=== PATIENT | female | born 1955 | race Caucasian/White ===

== ENCOUNTER → 2018-01-11 11:19 | Outpatient (CLI) | payer OTHER, SELFPAY ==
--- NOTE | 2018-01-11 11:21 | HPBI_ITS ---
MAMMOGRAPHY - BILATERAL SCREENING REASON FOR EXAM: Female, 62 years old. Routine annual screening examination. PERTINENT HISTORY: Aunt with breast cancer. TECHNIQUE: Digital bilateral breast parker (3D mammographic acquisition) in the CC and MLO projections. 2-D mediolateral oblique (MLO) and craniocaudad (CC) views of both breasts were obtained. CAD: Full Field Digital Mammography with Computer Added Detection was performed. COMPARISON: Comparison is made with prior study dated July 02, 2016 and March 30, 2015. FINDINGS: Breast Composition: The breasts are heterogeneously dense, which may obscure small masses. There are no dominant masses or suspicious calcifications. Stable benign-appearing bilateral axillary lymph nodes. No other significant abnormalities are identified. There has been no significant change since the prior study. HPBI/SCREENING MAMM (CAD), BILAT IMPRESSION: Stable bilateral screening mammogram. Yearly follow-up mammogram recommended. (A) ASSESSMENT CATEGORY: BIRADS Category 2: Benign. A letter regarding these results will be sent to the patient by the facility within 30 days. Approximately 10% of breast cancers are not detected by mammography. A normal mammogram should not delay biopsy of a clinically suspicious abnormality. [id number] Electronically Signed: Martin Patel MD at 9:50 EDT Tel [phone], Service support ,
== END ==
PROVIDERS: Family Provider Family Medicine; PCP Family Medicine; Visit Provider Family Medicine
DX: Z12.31 Encounter for screening mammogram for malignant neoplasm of breast (principal)
CPT/HCPCS: 77063; 77067

== ENCOUNTER → 2019-02-19 07:03 | Outpatient (CLI) | payer OTHER, SELFPAY ==
--- NOTE | 2019-02-19 07:06 | BI_ITS ---
MAMMOGRAPHY - BILATERAL SCREENING REASON FOR EXAM: Female, 63 years old. Routine annual screening examination. PERTINENT HISTORY: Aunt with breast cancer. TECHNIQUE: Digital bilateral breast parker (3D mammographic acquisition) in the CC and MLO projections. 2-D mediolateral oblique (MLO) and craniocaudad (CC) views of both breasts were obtained. CAD: Full Field Digital Mammography with Computer Added Detection was performed. COMPARISON: Comparison is made with prior study dated January 11, 2018 and July 02, 2016. FINDINGS: Breast Composition: The breasts are heterogeneously dense, which may obscure small masses. There are no dominant masses or suspicious calcifications. Stable fat-containing bilateral axillary lymph nodes. No other significant abnormalities are identified. There has been no significant change since the prior study. BI/SCREENING MAMM (CAD), BILAT IMPRESSION: Stable bilateral screening mammogram. Yearly follow-up mammogram recommended. (A) ASSESSMENT CATEGORY: BIRADS Category 2: Benign. A letter regarding these results will be sent to the patient by the facility within 30 days. Approximately 10% of breast cancers are not detected by mammography. A normal mammogram should not delay biopsy of a clinically suspicious abnormality. [id number] Electronically Signed: Martin Patel, at 9:18 EDT , Service support ,
== END ==
PROVIDERS: Family Provider Family Medicine; PCP Family Medicine; Referring Provider Family Medicine; Visit Provider Family Medicine
DX: Z12.31 Encounter for screening mammogram for malignant neoplasm of breast (principal)
CPT/HCPCS: 77063; 77067

== ENCOUNTER → 2021-06-30 14:26 | Outpatient (CLI) | payer OTHER, SELFPAY ==
[2021-07-05 20:55] LABS: HPV Reflexed? NOT INDICATED
== END ==
PROVIDERS: PCP Family Medicine; Visit Provider Obstetrics & Gynecology
DX: Z12.4 Encounter for screening for malignant neoplasm of cervix (principal)
CPT/HCPCS: 88175; G0145

== ENCOUNTER → 2022-10-30 | Outpatient (CLI) | payer OTHER, SELFPAY ==
--- NOTE | 2022-10-30 15:04 | BI_ITS ---
MAMMOGRAPHY - BILATERAL SCREENING REASON FOR EXAM: Female, 67 years old. Routine annual screening examination. PERTINENT HISTORY: Aunt with breast cancer. TECHNIQUE: Digital bilateral breast alf (3D mammographic acquisition) in the CC and MLO projections. 2-D mediolateral oblique (MLO) and craniocaudad (CC) views of both breasts were obtained. CAD: Full Field Digital Mammography with Computer Added Detection was performed. COMPARISON: 04/10/2021, 02/19/2019. FINDINGS: Breast Composition: Portions of the bilateral breasts are heterogeneously dense which may obscure small masses. There is a developing grouping of indeterminate calcifications in the right upper central retroareolar breast some of which are new or more conspicuous than on previous study. Although these demonstrate likely benign morphology, given asymmetrical and new finding, further assessment with magnification views is recommended. No dominant masses. Benign-appearing bilateral axillary lymph nodes. No other significant findings. BI/SCRN MAMM (CAD)W/ALF BILAT IMPRESSION: Further imaging evaluation recommended, as described above. (E) Recall Side: Right Breast ASSESSMENT CATEGORY: BIRADS Category 0: Incomplete. Need additional imaging evaluation. A letter regarding these results will be sent to the patient by the facility within 30 days. Approximately 10% of breast cancers are not detected by mammography. A normal mammogram should not delay biopsy of a clinically suspicious abnormality. Electronically Signed: Montez Taylor, at 15:43 EST ,
--- NOTE | 2022-10-30 15:13 | BD_ITS ---
STUDY: DUAL ENERGY X-RAY ABSORPTIOMETRY / DXA REASON FOR EXAM: Female, 67 years old. Postmenopausal TECHNIQUE: Bone Mineral Density (BMD) measurements of lumbar spine and bilateral hips were obtained. COMPARISON: None. FINDINGS: Lumbar Spine (L1-L4): g/cm2 (0.912) / T-score (-1.2) / Z-score (0.7) Findings are suggestive of osteopenia with a low fracture risk. Left Femur Total: g/cm2 (0.868) / T-score (-0.6) / Z-score (0.7) Left Femoral Neck: g/cm2 (0.684) / T-score (-1.5) / Z-score (0.2) Right Femur Total: g/cm2 (0.895) / T-score (-0.4) / Z-score (1.0) Right Femoral Neck: g/cm2 (0.776) / T-score (-0.7) / Z-score (1.0) BD/Dexa Bone Density Study IMPRESSION: The patient is considered osteopenic as outlined below according to World Jonathan Organization (WHO) criteria with a low fracture risk. Reference Information: The T-score is the number of standard deviations above or below the standard which is normal for young adults at their peak bone mineral density. The World Health Organization (WHO) interprets the T-scores as follows: Above -1 Normal bone density Between -1 and -2.5 Osteopenia Equal to / or below -2.5 Osteoporosis As a practical clinical guideline, osteopenia may be graded as follows: Mild -1 through -1.5 Moderate -1.6 through -2.0 Severe -2.1 through -2.4 The Z-score is the number of standard deviations above or below age-matched controls. A Z-score of less than -1.5 would be considered abnormal. References: 1. NIH Osteoporosis and Related Bone Diseases www osteo.org 2. International Society for Clinical Densitometry www iscd.org 3. National Osteoporosis Foundation www nof.org Electronically Signed: Martin Patel MD at 12:10 EST ,
== END | disposition home or self-care (01) ==
PROVIDERS: PCP Internal Medicine; Visit Provider Obstetrics & Gynecology
DX: Z12.31 Encounter for screening mammogram for malignant neoplasm of breast (principal); Z78.0 Asymptomatic menopausal state
CPT/HCPCS: 77063; 77067; 77080

== ENCOUNTER → 2022-11-07 | Outpatient (CLI) | payer OTHER, SELFPAY ==
--- NOTE | 2022-11-07 14:03 | BI_ITS ---
MAMMOGRAPHY - UNILATERAL DIAGNOSTIC: RIGHT BREAST REASON FOR EXAM: Female, 67 years old. Abnormal screening mammogram. PERTINENT HISTORY: Aunt with breast cancer. TECHNIQUE: Magnification spot views of the right breast were obtained. CAD: Full Field Digital Mammography with Computer Added Detection was performed. COMPARISON: Comparison is made with prior examination dated 10/30/2022. FINDINGS: Breast Composition: The breasts are heterogeneously dense, which may obscure small masses. There are no dominant masses or suspicious calcifications. No other significant abnormalities are identified. BI/DIAG MAMM W/CAD, UNILAT IMPRESSION: Negative unilateral diagnostic mammogram. Yearly followup mammogram recommended. (A) ASSESSMENT CATEGORY: BIRADS Category 1: Negative. A letter regarding these results will be sent to the patient by the facility within 30 days. Approximately 10% of breast cancers are not detected by mammography. A normal mammogram should not delay biopsy of a clinically suspicious abnormality. Electronically Signed: Martin Patel MD at 15:12 EST ,
== END | disposition home or self-care (01) ==
LOC: OPBI 14:01
PROVIDERS: PCP Internal Medicine; Visit Provider Internal Medicine
DX: R92.2 Inconclusive mammogram (principal); R92.1 Mammographic calcification found on diagnostic imaging of breast
CPT/HCPCS: 77065

== ENCOUNTER → 2023-01-23 | Outpatient (CLI) | payer OTHER, SELFPAY ==
--- NOTE | 2023-01-23 18:08 | MRI_ITS ---
INDICATION: OSSEOUS MASS LEFT 2ND TOE -- 2MM SLICES EXAMINATION: MRI - LEFT MR Forefoot W/O Contrast TECHNIQUE: Multiplanar and multisequence MR images of the LEFT foot. IV Contrast Dosage and Agent: None. COMPARISON: None. FINDINGS: BONE: Extending off of the superior medial aspect of the second proximal phalanx is a sclerotic lesion likely a benign osteoma. This remains low signal on all pulse sequences. This measures 0.6 cm transverse by 0.2 cm craniocaudal by 0.65 cm AP. JOINTS: Mild osteoarthritis first MTP joint. MUSCLES: Normal bulk and signal. LIGAMENTS: The Lisfranc ligament is intact. TENDONS: The flexor and extensor tendons are intact. MISCELLANEOUS: Intact plantar fascia. OTHER SOFT TISSUES: Small first MTP joint effusion. Mild subcutaneous edema distal dorsal metatarsal region. 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 Other etiologies considered less likely. Mild osteoarthritis first MTP joint with small joint effusion. Mild subcutaneous edema dorsal metatarsal region. Electronically Signed: Garcia Barillas MD, TRICE at 8:24 EDT ,
== END | disposition home or self-care (01) ==
LOC: MRI 18:02
PROVIDERS: PCP Internal Medicine; Referring Provider Podiatrist; Visit Provider Podiatrist
DX: R22.9 Localized swelling, mass and lump, unspecified (principal)
CPT/HCPCS: 73718

== ENCOUNTER 2023-09-30 11:30 | Outpatient (RCR) | payer OTHER, SELFPAY | END 2023-10-03 23:59 | LOC: NS 11:30 | PROVIDERS: PCP Internal Medicine; Referring Provider Obstetrics & Gynecology; Visit Provider Obstetrics & Gynecology | DX: Z71.3 Dietary counseling and surveillance (principal); E11.9 Type 2 diabetes mellitus without complications | CPT/HCPCS: 97802; 97803 ==

== ENCOUNTER 2023-10-23 15:52 | Outpatient (RCR) | payer OTHER, SELFPAY | END 2023-11-03 23:59 | LOC: NS 15:52 | PROVIDERS: PCP Internal Medicine; Referring Provider Obstetrics & Gynecology; Visit Provider Obstetrics & Gynecology | DX: Z71.3 Dietary counseling and surveillance (principal); E11.9 Type 2 diabetes mellitus without complications | CPT/HCPCS: 97803 ==

== ENCOUNTER → 2023-11-11 | Outpatient (CLI) | payer OTHER, SELFPAY ==
--- NOTE | 2023-11-11 07:16 | BI_ITS ---
MAMMOGRAPHY - BILATERAL SCREENING REASON FOR EXAM: Female, 68 years old. Routine annual screening examination. PERTINENT HISTORY: Aunt with breast cancer. TECHNIQUE: Digital bilateral breast alf (3D mammographic acquisition) in the CC and MLO projections. 2-D mediolateral oblique (MLO) and craniocaudad (CC) views of both breasts were obtained. CAD: Full Field Digital Mammography with Computer Added Detection was performed. COMPARISON: Comparison is made with prior study dated October 30, 2022 and November 07, 2022. FINDINGS: Breast Composition: The breasts are heterogeneously dense, which may obscure small masses. There are no dominant masses or suspicious calcifications. No other significant abnormalities are identified. There has been no significant change since the prior study. BI/SCRN MAMM (CAD)W/ALF BILAT IMPRESSION: Stable bilateral screening mammogram. Yearly follow-up mammogram recommended. (A) ASSESSMENT CATEGORY: BIRADS Category 1: Negative. A letter regarding these results will be sent to the patient by the facility within 30 days. Approximately 10% of breast cancers are not detected by mammography. A normal mammogram should not delay biopsy of a clinically suspicious abnormality. [id number] Electronically Signed: Martin Patel MD at 15:41 EST ,
--- OUTSIDE RECORDS SUMMARY | 2023-11-11 07:19 | XMS RPT_ITS | CCD ---
Author Name Unknown Address [address] [place] [address] Organization [facility] Care Team Providers Care Snake Charmer Name Role Phone EDDIE MCDONALD, ALICIA Alba III Primary Care Physician Chante MCDONALD, Keyanna Unavailable Errol Luna MD Primary Care Provider ERROL LUNA MD Primary Care Physician Keyanna Sharif MD Unavailable Errol Luna MD Primary Care Provider AMOL DIAZ MD Primary Care Physician ERROL LUNA Primary Care Unavailable ERROL LUNA Primary Care Unavailable ERROL LUNA Primary Care Unavailable MIRANDA STILL Referring Unavailable ERROL LUNA Primary Care Unavailable ERROL LUNA Primary Care Unavailable Keyanna Sharif MD Unavailable Errol Luna MD Primary Care Provider AMOL DIAZ MD Primary Care Unavailable KEYANNA SHARIF MD Attending Milagro SHARIF MD, KEYANNA Attending ERROL Rick MD Primary Care Unavailable AMOL DIAZ MD Primary Care Unavailable KEYANNA SHARIF MD Attending Milagro awad Allergies Allergy Classification Reported Allergen(s) Allergy Type Date of Onset Reaction(s) Facility (13 sources) Erythromycin; Translations: [erythromycin] Drug Allergy 5 [facility] (12 sources) Meclizine; Translations: [meclizine] Drug Allergy 2 Mental Status Change [facility] (6 sources) Sulfonamides (Antibiotic); Translations: [sulfa drugs] Drug allergy HIVES [facility] (7 sources) Amoxicillin / Clavulanate; Translations: [AMOXICILLIN-POT CLAVULANATE] Drug Allergy 7 GI Upset [facility] (7 sources) Lisinopril; Translations: [LISINOPRIL] Drug Allergy 5 Cough [facility] (7 sources) Sulfonamides (Antibiotic); Translations: [SULFA (SULFONAMIDE ANTIBIOTICS)] Drug Allergy 5 Hives [facility] (6 sources) ENVIRONMENTAL [Other] Propensity to adverse reactions 5 [facility] (1 source) OTHER; Translations: [OTHER] Propensity to adverse reactions (disorder) 5 [facility] Repository Medications Current Medications Medication Drug Class(es) Dates Sig (Normalized) Sig (Original) azithromycin 250 mg oral tablet (1 source) Macrolide Antimicrobial Start: 08-29-2022 End: 09-03-2022 take 2 tablets by mouth once daily, then take 1 tablet by mouth once daily azithromycin (ZITHROMAX) 250 mg tablet Indications: Sinobronchitis Take 2 tablets by mouth once daily for 1 day, THEN 1 tablet once daily for 4 days. 6 tablet 0 08/29/2022 09/03/2022 Active Completed/Discontinued Medications Medication Drug Class(es) Dates Sig (Normalized) Sig (Original) [id number] 200 actuat albuterol 0.09 mg/actuat metered dose inhaler (10 sources) beta2-Adrenergic Agonist Start: 08-29-2022 take 2 puff(s) by inhalation every six hours as needed for wheezing albuterol HFA (PROVENTIL HFA, VENTOLIN HFA) 90 mcg/actuation inhaler Indications: SOB (shortness of breath) Inhale 2 Puffs as instructed every 6 hours as needed for wheezing/shortnes s of breath. 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; Translations: [Type 1 diabetes mellitus uncontrolled] 06-16-2020 Chronic Diabetes mellitus without complication (7 sources) Type 1 diabetes mellitus; Translations: [Type 1 diabetes mellitus without complications] Onset: 04-16-2008 04-08-2017 Chronic Disorders of lipid metabolism (6 sources) Hyperlipidemia; Translations: [Hyperlipidemia, unspecified] Onset: 07-02-2014 06-29-2015 Chronic Essential hypertension (6 sources) Benign hypertension; Translations: [Essential (primary) hypertension] Onset: 10-15-2017 10-15-2017 Chronic Genitourinary symptoms and ill-defined conditions (1 source) Increased frequency of urination; Translations: [Frequency of micturition] Episodic Headache; including migraine (6 sources) Basilar migraine; Translations: [Migraine with aura, not intractable, without status migrainosus] Onset: 09-17-2012 09-17-2012 Chronic Mood disorders (6 sources) Depressive disorder; Translations: [Depression] Onset: 07-02-2012 07-02-2012 Chronic Nutritional deficiencies (7 sources) Vitamin D deficiency; Translations: [Vitamin D deficiency, unspecified] 06-16-2020 Chronic Osteoarthritis (6 sources) Osteoarthritis of finger joint of right hand; Translations: [Primary osteoarthritis, right hand] Onset: 06-29-2015 06-29-2015 Chronic Other inflammatory condition of skin (6 sources) Itching of ear 11-17-2020 Episodic Other liver diseases (5 sources) Non-alcoholic fatty liver; Translations: [Fatty (change of) liver, not elsewhere classified] Onset: 06-29-2015 06-29-2015 Chronic Other liver diseases (1 source) Fatty (change of) liver, not elsewhere classified; Translations: [Other chronic nonalcoholic liver disease] Onset: 06-29-2015 06-29-2015 Chronic Other lower respiratory disease (1 source) Cough; Translations: [Acute cough] Episodic Other lower respiratory disease (1 source) Dyspnea; Translations: [Shortness of breath] Episodic Other nutritional; endocrine; and metabolic disorders (6 sources) Obesity; Translations: [Obesity, unspecified] Onset: 06-29-2015 06-29-2015 Chronic Other screening for suspected conditions (not mental disorders or infectious disease) (2 sources) Patient encounter status; Translations: [Encounter for screening mammogram for malignant neoplasm of breast] Episodic Other skin disorders (6 sources) Lichen sclerosus et atrophicus; Translations: [Circumscribed scleroderma] Onset: 07-05-2016 07-05-2016 Chronic Other upper respiratory disease (6 sources) Allergic rhinitis; Translations: [Allergic rhinitis, unspecified] Onset: 02-14-2009 04-08-2017 Chronic Other upper respiratory infections (1 source) Chronic sinusitis; Translations: [Chronic sinusitis, unspecified] Chronic Unclassified (6 sources) Patient encounter status 06-16-2020 Unclassified (1 source) Acute cough; Translations: [Acute cough] Onset: 08-29-2022 Past or Other Problems Problem Classification Problem Date Documented Date Episodic/Chronic Inflammation; infection of eye (except that caused by tuberculosis or sexually transmitteddisease) (6 sources) Atopic keratoconjunctivitis; Translations: [Other keratoconjunctivitis, unspecified eye] Onset: 10-15-2017 10-15-2017 Episodic Residual codes; unclassified (6 sources) Family history of malignant neoplasm of gastrointestinal tract; Translations: [Family history of malignant neoplasm of digestive organs] Onset: 11-29-2008 10-30-2021 Episodic Results Test Name Value Interpretation Reference Range Facil ity Vital Signs Date Time Vital Sign Value Performing Clinician Steven mcpherson 09-12-2022 08:54-0500 Body temperature 98.4 [degF] Juan Carlos Oconnor MD Work Phone: [facility] 09-12-2022 08:54-0500 Body weight 86.64 kg Juan Carlos Oconnor MD Work Phone: [facility] 09-12-2022 08:54-0500 Diastolic blood pressure 72 mm[Hg] Juan Carlos Oconnor MD Work Phone: [facility] 09-12-2022 08:54-0500 Heart rate 86 /min Juan Carlos Oconnor MD Work Phone: [facility] 09-12-2022 08:54-0500 Respiratory rate 16 /min Juan Carlos Oconnor MD Work Phone: [facility] 09-12-2022 08:54-0500 SaO2% (BldA) [Mass fraction] 97 % Juan Carlos Oconnor MD Work Phone: [facility] 09-12-2022 08:54-0500 Systolic blood pressure 122 mm[Hg] Juan Carlos Oconnor MD Work Phone: [facility] 08-29-2022 12:49-0400 Body temperature 98.1 [degF] Miranda Praisler-Wood WIRE SPOOLER.FINANCIAL PLANNER Work Phone: [facility] 08-29-2022 12:49-0400 Body weight 88.45 kg Miranda Praisler-Wood WIRE SPOOLER.FINANCIAL PLANNER Work Phone: [facility] 08-29-2022 12:49-0400 Diastolic blood pressure 70 mm[Hg] Miranda Praisler-Wood WIRE SPOOLER.FINANCIAL PLANNER Work Phone: [facility] 08-29-2022 12:49-0400 Heart rate 94 /min Miranda Praisler-Wood WIRE SPOOLER.FINANCIAL PLANNER Work Phone: [facility] 08-29-2022 12:49-0400 Respiratory rate 16 /min Miranda Praisler-Wood WIRE SPOOLER.FINANCIAL PLANNER Work Phone: [facility] 08-29-2022 12:49-0400 SaO2% (BldA) [Mass fraction] 95 % Miranda Praisler-Wood WIRE SPOOLER.FINANCIAL PLANNER Work Phone: [facility] 08-29-2022 12:49-0400 Systolic blood pressure 122 mm[Hg] Miranda Praisler-Wood WIRE SPOOLER.FINANCIAL PLANNER Work Phone: [facility] 07-24-2022 08:34-0400 Body temperature 98.4 [degF] Kristen Shelley WIRE SPOOLER.FINANCIAL PLANNER Work Phone: [facility] 07-24-2022 08:34-0400 Body weight 88.63 kg Kristen Shelley WIRE SPOOLER.FINANCIAL PLANNER Work Phone: [facility] 07-24-2022 08:34-0400 Diastolic blood pressure 70 mm[Hg] Kristen Shelley WIRE SPOOLER.FINANCIAL PLANNER Work Phone: [facility] 07-24-2022 08:34-0400 Heart rate 83 /min Kristen Shelley WIRE SPOOLER.FINANCIAL PLANNER Work Phone: [facility] 07-24-2022 08:34-0400 Respiratory rate 18 /min Kristen Shelley WIRE SPOOLER.FINANCIAL PLANNER Work Phone: [facility] 07-24-2022 08:34-0400 SaO2% (BldA) [Mass fraction] 98 % Kristen Shelley WIRE SPOOLER.FINANCIAL PLANNER Work Phone: [facility] 07-24-2022 08:34-0400 Systolic blood pressure 124 mm[Hg] Kristen Shelley WIRE SPOOLER.FINANCIAL PLANNER Work Phone: [facility] Encounters Encounter Date Encounter Type Care Provider Facility Start: 10-07-2023 End: 10-08-2023 ambulatory AMOL DIAZ MD Facility:B Start: 10-07-2023 End: 10-07-2023 Patient encounter procedure KEYANNA SHARIF MD [facility] Start: 04-24-2023 ambulatory Errol Luna MD Work Phone: [facility] Start: 03-20-2023 End: 03-20-2023 ambulatory ERROL LUNA Facility:[facility] Start: 03-06-2023 End: 03-07-2023 ambulatory AMOL DIAZ MD Facility:B Start: 03-06-2023 End: 03-06-2023 Patient encounter procedure KEYANNA SHARIF MD [facility] Start: 10-17-2022 End: 10-18-2022 ambulatory KEYANNA SHARIF MD Facility:[facility] Start: 10-17-2022 End: 10-17-2022 Patient encounter procedure KEYANNA SHARIF MD [facility] Start: 09-12-2022 Telephone encounter Errol Luna MD Work Phone: [facility] Procedures Date Procedure Procedure Detail Performing Clinician Start: 07-24-2022 Urnls dip stick/tabl et rgnt auto w/o microscopy Maritza Concepcion PA-C Work Phone: Start: 04-10-2021 Mammography Errol Langston MD Work Phone: Start: 11-16-2014 Colonoscopy Errol Langston MD Work Phone: Plan of Treatment Date Care Activity Detail Author Start: 11-16-2024 Colonoscopy COLONOSCOPY [facility] Start: 11-16-2024 COLORECTAL CANCER SCREENING COLORECTAL CANCER SCREENING [facility] Start: 03-20-2024 BP CONTROLLED (<130/80) BP CONTROLLED (<130/80) [facility] Start: 09-21-2023 Hepatitis C antibody, confirmatory test DILATED RETINAL EXAM [facility] Start: 09-12-2023 BP CONTROLLED (<130/80) BP CONTROLLED (<130/80) [facility] Start: 08-29-2023 BP CONTROLLED (<130/80) BP CONTROLLED (<130/80) [facility] Start: 07-24-2023 BP CONTROLLED (<130/80) BP CONTROLLED (<130/80) [facility] Start: 07-05-2023 [facility] Start: 12-27-2022 BP CONTROLLED (<130/80) BP CONTROLLED (<130/80) [facility] Start: 11-16-2022 ANNUAL PCP TEAM CHRONIC DISEASE VISIT ANNUAL PCP TEAM CHRONIC DISEASE VISIT [facility] Start: 11-16-2022 PNEUMOCOCCAL: 65+ (2 - PCV) PNEUMOCOCCAL: 65+ (2 - PCV) [facility] Start: 11-04-2022 ADVANCE DIRECTIVE DISCUSSION ADVANCE DIRECTIVE DISCUSSION [facility] Start: 10-18-2022 Hepatitis B surface antibody level LDL CHOLESTEROL [facility] Start: 08-21-2022 Hepatitis C antibody, confirmatory test DILATED RETINAL EXAM [facility] Start: 07-05-2022 Influenza vaccination INFLUENZA (#1) [facility] Start: 06-05-2022 3 comp foot exam completed DIABETIC FOOT EXAM [facility] Start: 04-18-2022 Hemoglobin A1c/Hemoglobin.total in Blood HBA1C [facility] Start: 04-10-2022 Mammography MAMMOGRAM [facility] Start: 11-16-2021 Hepatitis B screening URINE ALBUMIN:CREATININE RATIO [facility] Start: 11-04-2021 ADVANCE DIRECTIVE DISCUSSION ADVANCE DIRECTIVE DISCUSSION [facility] Start: 2020 BONE DENSITY BONE DENSITY [facility] Start: 02-26-2020 SHINGRIX VACCINE (3 of 3) SHINGRIX VACCINE (3 of 3) [facility] Start: 03-01-2019 Urine microalbumin profile DTAP,TDAP,TD (2 - Td or Tdap) [facility] Start: 11-13-2014 FECAL OCCULT BLOOD FECAL OCCULT BLOOD [facility] Start: 2000 COLOGUARD (FIT-DNA) COLOGUARD (FIT-DNA) [facility] Start: [address] COLONOGRAPHY [facility] Start: 2000 SIGMOIDOSCOPY SIGMOIDOSCOPY [facility] Start: 01-[birth year]-1956 COVID-19 VACCINE (#1) COVID-19 VACCINE (#1) [facility] Bacteria identified in Urine by Culture URINE CULTURE Microbiology Routine Urinary frequency Ordered: 07/24/2022 [facility] Work Phone: Immunizations Immunization Date Immunization Notes Care Provider Doretha payne 11-16-2021 influenza, high-dose , quadrivalent vaccine (FLUZONE HIGH DOSE QUADRIVALENT) Errol Luna MD Work Phone: [facility] 11-16-2021 pneumococcal polysaccharide vaccine, 23 valent Errol Luna MD Work Phone: [facility] 01-01-2020 influenza, injectabl e, quadrivalent, contains preservative Errol Luna MD Work Phone: [facility] Work Phone: 01-01-2020 zoster vaccine recombinant Errol Luna MD Work Phone: [facility] Work Phone: 11-21-2018 influenza, injectabl e, quadrivalent, contains preservative Errol Luna MD Work Phone: [facility] 10-21-2017 zoster vaccine, live Errol Luna MD Work Phone: [facility] Work Phone: 07-22-2017 influenza, injectabl e, quadrivalent, contains preservative Errol Luna MD Work Phone: [facility] 11-09-2016 pneumococcal polysaccharide vaccine, 23 valent Errol Luna MD Work Phone: [facility] Work Phone: 09-21-2016 influenza, injectabl e, quadrivalent, contains preservative Errol Luna MD Work Phone: [facility] Work Phone: 03-01-2014 measles, mumps and rubella virus vaccine Errol Luna MD Work Phone: [facility] 08-30-2012 influenza virus vacc ine, unspecified formulation Errol Luna MD Work Phone: [facility] 08-07-2010 influenza virus vacc ine, unspecified formulation Errol Luna MD Work Phone: [facility] 10-20-2009 novel influenza-H1N1 -09, preservative-free, injectable Errol Luna MD Work Phone: [facility] Work Phone: 10-18-2009 novel influenza-H1N1 -09, all formulations Errol Luna MD Work Phone: [facility] Work Phone: 08-03-2009 influenza virus vacc ine, unspecified formulation Errol Luna MD Work Phone: [facility] Work Phone: 03-01-2009 tetanus toxoid, redu berny diphtheria toxoid, and acellular pertussis vaccine, adsorbed Errol Luna MD Work Phone: [facility] 01-09-2002 hepatitis B vaccine, adult dosage Errol Luna MD Work Phone: [facility] Work Phone: 08-05-2001 hepatitis B vaccine, adult dosage Errol Luna MD Work Phone: [facility] Work Phone: 07-04-2001 hepatitis B vaccine, adult dosage Errol Luna MD Work Phone: [facility] Work Phone: Payers Date Payer Category Payer Unknown [id number] 2019 Unknown [employer] [id number] 2019-Present [phone] [address] [place] [address] PPO [id number] 2019 Unknown [employer] P[employer] [id number] 2019-Present [phone] [address] [place] [address] PPO [id number] 2019 Unknown [id number] 1955 Unknown [id number] 1955 Unknown [id number] 1955 Unknown [id number] Social History Date Type Detail Facility Start: 02-04-2020 Never smoked t obacco (finding) [facility] Sex Assigned At [facility] Start: 11-10-2014 End: 07-24-2022 Tobacco smoking status NHIS Ex-smoker [facility] History of tobacco use Cigarette Smoker [facility] Start: 11-10-2014 End: 07-24-2022 Tobacco use and exposure Smokeless tobacco non-user [facility] Start: 12-27-2021 End: 03-20-2023 Alcohol intake Current drinker of alcohol (finding) [facility] Start: 08-16-2020 History SDOH Physica l Activity DPW 3 [facility] Start: 08-16-2020 History SDOH Stress [address] [facility] Start: 11-10-2014 End: 07-24-2022 Tobacco Comment quit 30 yrs ago [facility] Start: 1955 Sex Assigned At Not on file [facility] History of tobacco use Current smoker [facility] Start: 2022 End: 09-12-2022 Exposure to SARS-CoV-2 (event) Not sure [facility] Work Phone: Medical Equipment Procedure Code Equipment Code Equipment Origin al Text Equipment Identifier Dates Start: 06-12-2016 Clinical Notes 09-17-2012 to 04-24-2023 Telephone Encounter - Lola Little MA - 09/12/2022 11:26 AM ESTTelephone Encounter - Errol Luna MD - 09/12/2022 10:37 AM Angela Oconnor MD - 09/12/2022 9:17 AM EST Note Date & Type Note Facility 04-24-2023 Note Patient Outreach (IN [facility]) MAST,HARLAN Alba ([id number]) 1955 F Date Time Provider Department 04/24/23 ERROL LUNA During your visit today, we recorded the following information about you: Allergies As of Date: 04/24/2023 Noted Allergy Reaction AUGMENTIN (AMOXICILLIN-POT CLAVUL*12/15/2016 8 - GI Upset ENVIRONMENTAL [Other] 09/25/2005 ERYTHROMYCIN 09/25/2005 LISINOPRIL 06/29/2015 3 - Cough MECLIZINE 07/24/2022 1 - Mental Status Change SULFA (SULFONAMIDE ANTIBIOTICS) 09/07/2005 4 - Hives Date Reviewed: 03/20/2023 Reviewed by: Al Engel APRN.FINANCIAL PLANNER - Fully Assessed Visit Diagnosis:Encounter for screening mammogram for breast cancer [Z12.31] Order(s):RAISA SCREENING [[id number]] Order #: [id number] FUTURE Prescriptions as of 04/29/2023 - albuterol HFA (PROVENTIL HFA, VENTOLIN HFA) 90 mcg/actuation inhaler Inhale 2 Puffs as instructed every 6 hours as needed for wheezing/shortness of breath. - JARDIANCE 10 mg tablet Take 10 mg by mouth once daily. - irbesartan (AVAPRO) 75 mg tablet Take 1 tablet by mouth once daily. - albuterol HFA (PROVENTIL HFA, VENTOLIN HFA) 90 mcg/actuation inhaler Inhale 2 Puffs as instructed every 4 hours as needed for wheezing/shortness of breath. - fluticasone (FLONASE) 50 mcg/actuation nasal spray Use 2 Sprays in each nostril once daily. Rinse mouth after use. - insulin lispro (HUMALOG KWIKPEN INSULIN) 100 unit/mL inpn inject 1 unit subcutaneously PER 15 GRAMS OF CARBS - USING 10 UNITS PER DAY - insulin lispro (HUMALOG KWIKPEN INSULIN) 100 unit/mL inpn Inject 1 unit/15 grams Carb, Using 10 units/day - blood sugar diagnostic (ONETOUCH ULTRA TEST) test strip Test blood sugar(s) 4 times daily. Dx: 250.01. Insulin: Yes - insulin needles, DISPOSABLE, (PEN NEEDLE) 31 gauge x 5/16 ndle Use one needle per dose. 1 per day. - tacrolimus (PROTOPIC) 0.1 % ointment Apply 1 application to affected area twice daily. - olopatadine (PATANOL) 0.1 % ophthalmic solution Use 1 Drop in both eyes twice daily. - clobetasol (TEMOVATE) 0.05 % ointment Apply to affected area nightly x 6-12 weeks, then use 1-2x weekly for maintenance - Lancets (ONETOUCH ULTRASOFT LANCETS) lancets Test blood sugar(s)4 daily. Dx: diabetes. Insulin: Yes - Cholecalciferol, Vitamin D3, 1,000 unit cap Take 1 capsule by mouth once daily. - vitamin b complex (B COMPLETE) tab Take 1 tablet by mouth once daily. - multivitamin tablet Take 1 tablet by mouth once daily. Problem List As Of Date 04/24/2023 Noted Resolved Type 1 diabetes mellitus (HCC) [E10.9] 04/16/2008 Family history of malignant neoplasm of gastroi*11/29/2008 Allergic rhinitis [J30.9] 02/14/2009 Abdominal pain, LLQ (left lower quadrant) [R10.*11/21/2009 06/29/2015 Depression [F32.A] 07/02/2012 Basilar migraine [G43.109] 09/17/2012 Migraine [G43.909] 09/17/2012 11/16/2021 Hyperlipidemia with target LDL less than 100 [E*07/02/2014 Osteoarthritis of finger of right hand [M19.041]06/29/2015 Fatty liver disease, nonalcoholic [K76.0] 06/29/2015 Obesity [E66.9] 06/29/2015 Lichen sclerosus et atrophicus [L90.0] 07/05/2016 Benign hypertension [I10] 10/15/2017 Atopic keratoconjunctivitis [H16.299] 10/15/2017 Encounter Status:Closed by Langtice, PRODUSER on 04/29/23 [facility] 03-20-2023 Note HNO ID: [id number] Author: Al Engel APRN.FINANCIAL PLANNER Service: ? Author Type: Nurse Practitioner Type: Progress Notes Filed: 03/20/2023 5:31 PM Note Text: Subjective HPI Nontoxic-appearing female presents urgent care chief complaint transient abdominal pain urinary frequency. Duration of symptoms greater than 2 weeks. Associated symptoms listed above. States abdominal pain is better today. Was unable to go to work yesterday due to discomfort. Presents today for evaluation. Denies any current discomfort. No OTC medication use today. Denies any fever body aches chills productive cough chest pain shortness of breath pleuritic pain hemoptysis or rash. Past medical history prescription medication use and allergies reviewed. .Patient presents with: Nausea: bloating, stomach pain and frequent urination x 2 weeks PAST MEDICAL HISTORY Diagnosis Date Atopic keratoconjunctivitis 10/15/2017 Benign hypertension 10/15/2017 Depression 07/02/2012 Diabetes (HCC) Hyperlipidemia LDL goal < 100 07/02/2014 Obesity 06/29/2015 Rheumatoid arthritis(714.0) Unspecified constipation PAST SURGICAL HISTORY Procedure Laterality Date CHOLECYSTECTOMY 1988 Cholecystectomy, pancreatitis COLSC FLX W/RMVL OF TUMOR POLYP LESION SNARE TQ 12/13/08 STRESS TEST NUCLEAR 07/06/12 Normal/negative ALLERGIES Augmentin [Amoxicillin-Pot Clavulanate], Environmental [Other], Erythromycin, Lisinopril, Meclizine, and Sulfa (Sulfonamide Antibiotics) MEDICATIONS albuterol HFA (PROVENTIL HFA, VENTOLIN HFA) 90 mcg/actuation inhaler Inhale 2 Puffs as instructed every 6 hours as needed for wheezing/shortness of breath. JARDIANCE 10 mg tablet Take 10 mg by mouth once daily. irbesartan (AVAPRO) 75 mg tablet Take 1 tablet by mouth once daily. albuterol HFA (PROVENTIL HFA, VENTOLIN HFA) 90 mcg/actuation inhaler Inhale 2 Puffs as instructed every 4 hours as needed for wheezing/shortness of breath. fluticasone (FLONASE) 50 mcg/actuation nasal spray Use 2 Sprays in each nostril once daily. Rinse mouth after use. insulin lispro (HUMALOG KWIKPEN INSULIN) 100 unit/mL inpn inject 1 unit subcutaneously PER 15 GRAMS OF CARBS - USING 10 UNITS PER DAY (Patient taking differently: inject 1 unit subcutaneously PER 15 GRAMS OF CARBS - USING 10 UNITS PER DAY Per insulin pump) insulin lispro (HUMALOG KWIKPEN INSULIN) 100 unit/mL inpn Inject 1 unit/15 grams Carb, Using 10 units/day blood sugar diagnostic (ONETOUCH ULTRA TEST) test strip Test blood sugar(s) 4 times daily. Dx: 250.01. Insulin: Yes insulin needles, DISPOSABLE, (PEN NEEDLE) 31 gauge x 5/16 ndle Use one needle per dose. 1 per day. tacrolimus (PROTOPIC) 0.1 % ointment Apply 1 application to affected area twice daily. olopatadine (PATANOL) 0.1 % ophthalmic solution Use 1 Drop in both eyes twice daily. clobetasol (TEMOVATE) 0.05 % ointment Apply to affected area nightly x 6-12 weeks, then use 1-2x weekly for maintenance Lancets (ONETOUCH ULTRASOFT LANCETS) lancets Test blood sugar(s)4 daily. Dx: diabetes. Insulin: Yes Cholecalciferol, Vitamin D3, 1,000 unit cap Take 1 capsule by mouth once daily. vitamin b complex (B COMPLETE) tab Take 1 tablet by mouth once daily. multivitamin tablet Take 1 tablet by mouth once daily. FAMILY HISTORY Problem Relation Age of Onset COPD Father emphasema, bridge welder and ex-smoker Cancer Mother Multiple myeloma Blood Disease Mother Diabetes Paternal Grandmother Emphysema Paternal Grandfather Colon Cancer Maternal Grandfather Cancer Maternal Grandfather Lung Cancer Maternal Grandmother Skin Stroke Maternal Grandmother Allergies Brother Allergies Son Alcohol/Drug Brother Social History Tobacco Use Smoking status: Former Types: Cigarettes Smokeless tobacco: Never Tobacco comments: quit 30 yrs ago Substance Use Topics Alcohol use: Yes Comment: rare glass of wine Drug use: No BP 104/68 Pulse 86 Temp 36.1 ?C (97 ?F) Resp 16 Wt 90.3 kg (199 lb) SpO2 97% BMI 36.62 kg/m? Review of Systems Constitutional: Negative for chills, fever and malaise/fatigue. HENT: Negative for congestion, ear discharge, ear pain, sinus pain and sore throat. Eyes: Negative for blurred vision, pain, discharge and redness. Respiratory: Negative for cough, hemoptysis, sputum production, shortness of breath, wheezing and stridor. Cardiovascular: Negative for chest pain. Gastrointestinal: Positive for abdominal pain and nausea. Negative for diarrhea and vomiting. Genitourinary: Positive for frequency and urgency. Musculoskeletal: Negative for myalgias. Skin: Negative for itching and rash. Neurological: Negative for dizziness and headaches. Objective Physical Exam Constitutional: General: She is not in acute distress. Appearance: She is not diaphoretic. HENT: Head: Normocephalic. Mouth/Throat: Mouth: Mucous membranes are moist. Pharynx: Oropharynx is clear. No oropharyngeal exudate (more content not included)... [facility] 03-20-2023 Note HNO ID: [id number] Author: Al Engel APRN.FINANCIAL PLANNER Service: ? Author Type: Nurse Practitioner Type: Progress Notes Filed: 03/20/2023 5:31 PM Note Text: Subjective HPI ROS Objective Physical Exam [facility] 09-12-2022 Miscellaneous Notes Patient notified. Patient declined alternatives stating they don't work for her. Lola Little MA Given it is an opiate we usually do not use it any longer and in fact, many pharmacies are no longer dispensing. Can call in some tessalon or I would use delsym otc Patient called requesting liquid form of codeine for cough. Patient states she was prescribed thru urgent care previously. Was seen today she was informed to check with PCP for refill. Patient using [facility] in [place]. documented in this encounter [facility] 09-12-2022 Note HNO ID: [id number] Author: Juan Carlos Oconnor MD Service: ? Author Type: Physician Type: Progress Notes Filed: 09/12/2022 9:43 AM Note Text: Patient presents with: Cough: congestion x 3-4 weeks HPI: Feeling sick for 3 1/2 weeks. Symptoms began with a influenza-like illness. Negative CXR here 08/29/22 and treated with zpak, codeine cough syrup, and albuterol for sinobronchitis. The cough has not worsened but is lingering. Positive symptoms: cough, Shortness of breath, sometimes right upper back pain, sometimes clammy (improved), resolved sore throat, sometimes Rhinorrhea, tussive Vomiting, Negative symptoms: Earache, Sinus pressure, Diarrhea, hemoptysis OTC: albuterol, occasional naproxen for back pain, codeine cough med Orts she has had COVID once before. She was not tested for COVID during this illness. PAST MEDICAL HISTORY Diagnosis Date Atopic keratoconjunctivitis 10/15/2017 Benign hypertension 10/15/2017 Depression 07/02/2012 Diabetes (HCC) Hyperlipidemia LDL goal < 100 07/02/2014 Obesity 06/29/2015 Rheumatoid arthritis(714.0) Unspecified constipation MEDICATIONS: Current Outpatient Medications Medication Sig albuterol HFA (PROVENTIL HFA, VENTOLIN HFA) 90 mcg/actuation inhaler Inhale 2 Puffs as instructed every 6 hours as needed for wheezing/shortness of breath. JARDIANCE 10 mg tablet Take 10 mg by mouth once daily. irbesartan (AVAPRO) 75 mg tablet Take 1 tablet by mouth once daily. albuterol HFA (PROVENTIL HFA, VENTOLIN HFA) 90 mcg/actuation inhaler Inhale 2 Puffs as instructed every 4 hours as needed for wheezing/shortness of breath. fluticasone (FLONASE) 50 mcg/actuation nasal spray Use 2 Sprays in each nostril once daily. Rinse mouth after use. insulin lispro (HUMALOG KWIKPEN INSULIN) 100 unit/mL inpn inject 1 unit subcutaneously PER 15 GRAMS OF CARBS - USING 10 UNITS PER DAY (Patient taking differently: inject 1 unit subcutaneously PER 15 GRAMS OF CARBS - USING 10 UNITS PER DAY Per insulin pump) insulin lispro (HUMALOG KWIKPEN INSULIN) 100 unit/mL inpn Inject 1 unit/15 grams Carb, Using 10 units/day blood sugar diagnostic (ONETOUCH ULTRA TEST) test strip Test blood sugar(s) 4 times daily. Dx: 250.01. Insulin: Yes insulin needles, DISPOSABLE, (PEN NEEDLE) 31 gauge x 5/16 ndle Use one needle per dose. 1 per day. tacrolimus (PROTOPIC) 0.1 % ointment Apply 1 application to affected area twice daily. olopatadine (PATANOL) 0.1 % ophthalmic solution Use 1 Drop in both eyes twice daily. clobetasol (TEMOVATE) 0.05 % ointment Apply to affected area nightly x 6-12 weeks, then use 1-2x weekly for maintenance Lancets (ONETOUCH ULTRASOFT LANCETS) lancets Test blood sugar(s)4 daily. Dx: diabetes. Insulin: Yes Cholecalciferol, Vitamin D3, 1,000 unit cap Take 1 capsule by mouth once daily. multivitamin tablet Take 1 tablet by mouth once daily. vitamin b complex (B COMPLETE) tab Take 1 tablet by mouth once daily. No current facility-administered medications for this visit. ALLERGIES: ALLERGIES Allergen Reactions Augmentin [Amoxicil* GI Upset Environmental [Othe* Erythromycin Lisinopril Cough Meclizine Mental Status Change Sulfa (Sulfonamide * Hives VITALS: BP 122/72 Pulse 86 Temp 36.9 ?C (98.4 ?F) Resp 16 Wt 86.6 kg (191 lb) SpO2 97% BMI 35.15 kg/m? PHYSICAL EXAM: GEN: mildly ill appearing HEENT: PERRL, EOMI, conjunctiva clear Neck: supple, no thyromegaly, no lymphadenopathy HEART: regular rate and rhythm, no murmurs LUNGS: clear to auscultation, no wheezes or crackles, no increased WOB; harsh raspy cough ASSESSMENT/PLAN: 1. Bronchitis - ICD9: 490, ICD10: J40 Post-bronchitic cough. Possible initial COVID-19. Continue cough suppressant treatment. Follow up with worsening cough, worsening shortness of breath, increasing chest pain, hemoptysis or late onset fever. Repeat antibiotic is not indicated. Controlled substance refills are not appropriate from [facility]. Juan Carlos Oconnor MD [facility] 09-12-2022 History of Present illness Narrative Patient presents with: Cough: congestion x 3-4 weeks HPI: Feeling sick for 3 1/2 weeks. Symptoms began with a influenza-like illness. Negative CXR here 08/29/22 and treated with zpak, codeine cough syrup, and albuterol for sinobronchitis. The cough has not worsened but is lingering. Positive symptoms: cough, Shortness of breath, sometimes right upper back pain, sometimes clammy (improved), resolved sore throat, sometimes Rhinorrhea, tussive Vomiting, Negative symptoms: Earache, Sinus pressure, Diarrhea, hemoptysis OTC: albuterol, occasional naproxen for back pain, codeine cough med Orts she has had COVID once before. She was not tested for COVID during this illness. PAST MEDICAL HISTORY Diagnosis Date Atopic keratoconjunctivitis 10/15/2017 Benign hypertension 10/15/2017 Depression 07/02/2012 Diabetes (HCC) Hyperlipidemia LDL goal < 100 07/02/2014 Obesity 06/29/2015 Rheumatoid arthritis(714.0) Unspecified constipation MEDICATIONS: Current Outpatient Medications Medication Sig albuterol HFA (PROVENTIL HFA, VENTOLIN HFA) 90 mcg/actuation inhaler Inhale 2 Puffs as instructed every 6 hours as needed for wheezing/shortness of breath. JARDIANCE 10 mg tablet Take 10 mg by mouth once daily. irbesartan (AVAPRO) 75 mg tablet Take 1 tablet by mouth once daily. albuterol HFA (PROVENTIL HFA, VENTOLIN HFA) 90 mcg/actuation inhaler Inhale 2 Puffs as instructed every 4 hours as needed for wheezing/shortness of breath. fluticasone (FLONASE) 50 mcg/actuation nasal spray Use 2 Sprays in each nostril once daily. Rinse mouth after use. insulin lispro (HUMALOG KWIKPEN INSULIN) 100 unit/mL inpn inject 1 unit subcutaneously PER 15 GRAMS OF CARBS - USING 10 UNITS PER DAY (Patient taking differently: inject 1 unit subcutaneously PER 15 GRAMS OF CARBS - USING 10 UNITS PER DAY Per insulin pump) insulin lispro (HUMALOG KWIKPEN INSULIN) 100 unit/mL inpn Inject 1 unit/15 grams Carb, Using 10 units/day blood sugar diagnostic (ONETOUCH ULTRA TEST) test strip Test blood sugar(s) 4 times daily. Dx: 250.01. Insulin: Yes insulin needles, DISPOSABLE, (PEN NEEDLE) 31 gauge x 5/16 ndle Use one needle per dose. 1 per day. tacrolimus (PROTOPIC) 0.1 % ointment Apply 1 application to affected area twice daily. olopatadine (PATANOL) 0.1 % ophthalmic solution Use 1 Drop in both eyes twice daily. clobetasol (TEMOVATE) 0.05 % ointment Apply to affected area nightly x 6-12 weeks, then use 1-2x weekly for maintenance Lancets (ONETOUCH ULTRASOFT LANCETS) lancets Test blood sugar(s)4 daily. Dx: diabetes. Insulin: Yes Cholecalciferol, Vitamin D3, 1,000 unit cap Take 1 capsule by mouth once daily. multivitamin tablet Take 1 tablet by mouth once daily. vitamin b complex (B COMPLETE) tab Take 1 tablet by mouth once daily. No current facility-administered medications for this visit. ALLERGIES: ALLERGIES Allergen Reactions Augmentin [Amoxicil* GI Upset Environmental [Othe* Erythromycin Lisinopril Cough Meclizine Mental Status Change Sulfa (Sulfonamide * Hives VITALS: BP 122/72 Pulse 86 Temp 36.9 C (98.4 F) Resp 16 Wt 86.6 kg (191 lb) SpO2 97% BMI 35.15 kg/m PHYSICAL EXAM: GEN: mildly ill appearing HEENT: PERRL, EOMI, conjunctiva clear Neck: supple, no thyromegaly, no lymphadenopathy HEART: regular rate and rhythm, no murmurs LUNGS: clear to auscultation, no wheezes or crackles, no increased WOB; harsh raspy cough ASSESSMENT/PLAN: 1. Bronchitis - ICD9: 490, ICD10: J40 Post-bronchitic cough. Possible initial COVID-19. Continue cough suppressant treatment. Follow up with worsening cough, worsening shortness of breath, increasing chest pain, hemoptysis or late onset fever. Repeat antibiotic is not indicated. Controlled substance refills are not appropriate from [facility]. Juan Carlos Oconnor MD documented in this encounter [facility] 08-29-2022 Note HNO ID: [id number] Author: RT Rosanna(R) Service: ? Author Type: Band Splicer Type: Progress Notes Filed: 08/29/2022 1:28 PM Note Text: Radiology Service Progress Note PATIENT NAME: Harlan Hope DATE OF SERVICE: August 29, 2022 TIME: 1:14 PM PATIENT IDENTITY VERIFICATION COMPLETED USING TWO (2) IDENTIFIERS: Name and Date of confirmed by patient verbally. FALL SCREENING: Has the patient had 2 falls in the last year or 1 fall with injury or currently using an Ambulatory Assistive Device (Walker, Cane, Wheelchair, Crutches, etc.)? No PATIENT GENDER DATA: Female. status: : No status: NO. PATIENT RELEVANT IMPLANT DATA REVIEWED: Yes RADIOLOGY DEPARTMENT: General X-ray: Exam(s) Completed: Chest X-Ray PERIPHERAL IV DATA: Not applicable SIGNED BY: RT Rosanna(R) August 29, 2022 1:14 PM [facility] 08-29-2022 Note HNO ID: [id number] Author: Miranda 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 PLANNER Service: ? Author Type: Nurse Practitioner Type: Progress Notes Filed: 08/29/2022 2:15 PM Note Text: Subjective Cough Associated symptoms include chills, headaches and shortness of breath. Pertinent negatives include no ear pain, no sore throat and no eye redness. Harlan Hope is a 67 year old female who presents with a cough and headache x 10 days. Pt states that she previously had a fever which has resolved this week. Pt states that she has back pain in her mid back. Pt also endorses SOB, worse with activity. Pt denies rhinorrhea, sore throat, nausea, vomiting or diarrhea. Pt has been taking cough medicine at home without relief. Pt has been using an albuterol inhaler for SOB. Pt states that t[employer] have not worked for her in the past and codeine- GUAIFENESIN normally works for her. Review of Systems Constitutional: Positive for chills. Negative for fever. HENT: Positive for congestion. Negative for ear pain and sore throat. Eyes: Negative for discharge and redness. Respiratory: Positive for cough, sputum production and shortness of breath. Gastrointestinal: Negative for abdominal pain, diarrhea, nausea and vomiting. Musculoskeletal: Positive for back pain. Neurological: Positive for headaches. BP 122/70 Pulse 94 Temp 36.7 ?C (98.1 ?F) Resp 16 Wt 88.5 kg (195 lb) SpO2 95% BMI 35.88 kg/m? PAST MEDICAL HISTORY Diagnosis Date Atopic keratoconjunctivitis 10/15/2017 Benign hypertension 10/15/2017 Depression 07/02/2012 Diabetes (HCC) Hyperlipidemia LDL goal < 100 07/02/2014 Obesity 06/29/2015 Rheumatoid arthritis(714.0) Unspecified constipation PAST SURGICAL HISTORY Procedure Laterality Date CHOLECYSTECTOMY 1987 Cholecystectomy, pancreatitis COLSC FLX W/RMVL OF TUMOR POLYP LESION SNARE TQ 12/13/08 STRESS TEST NUCLEAR 07/06/12 Normal/negative ALLERGIES Augmentin [Amoxicillin-Pot Clavulanate], Environmental [Other], Erythromycin, Lisinopril, Meclizine, and Sulfa (Sulfonamide Antibiotics) MEDICATIONS JARDIANCE 10 mg tablet Take 10 mg by mouth once daily. irbesartan (AVAPRO) 75 mg tablet Take 1 tablet by mouth once daily. albuterol HFA (PROVENTIL HFA, VENTOLIN HFA) 90 mcg/actuation inhaler Inhale 2 Puffs as instructed every 4 hours as needed for wheezing/shortness of breath. fluticasone (FLONASE) 50 mcg/actuation nasal spray Use 2 Sprays in each nostril once daily. Rinse mouth after use. insulin lispro (HUMALOG KWIKPEN INSULIN) 100 unit/mL inpn inject 1 unit subcutaneously PER 15 GRAMS OF CARBS - USING 10 UNITS PER DAY (Patient taking differently: inject 1 unit subcutaneously PER 15 GRAMS OF CARBS - USING 10 UNITS PER DAY Per insulin pump) insulin lispro (HUMALOG KWIKPEN INSULIN) 100 unit/mL inpn Inject 1 unit/15 grams Carb, Using 10 units/day blood sugar diagnostic (ONETOUCH ULTRA TEST) test strip Test blood sugar(s) 4 times daily. Dx: 250.01. Insulin: Yes insulin needles, DISPOSABLE, (PEN NEEDLE) 31 gauge x 5/16 ndle Use one needle per dose. 1 per day. tacrolimus (PROTOPIC) 0.1 % ointment Apply 1 application to affected area twice daily. olopatadine (PATANOL) 0.1 % ophthalmic solution Use 1 Drop in both eyes twice daily. clobetasol (TEMOVATE) 0.05 % ointment Apply to affected area nightly x 6-12 weeks, then use 1-2x weekly for maintenance Lancets (ONETOUCH ULTRASOFT LANCETS) lancets Test blood sugar(s)4 daily. Dx: diabetes. Insulin: Yes Cholecalciferol, Vitamin D3, 1,000 unit cap Take 1 capsule by mouth once daily. vitamin b complex (B COMPLETE) tab Take 1 tablet by mouth once daily. multivitamin tablet Take 1 tablet by mouth once daily. codeine-guaiFENesin (ROBITUSSIN AC) 10-100 mg/5 mL syrup Take 5-10 mL by mouth four times daily as needed for cough for up to 7 days. May cause drowsiness. FAMILY HISTORY Problem Relation Age of Onset COPD Father emphasema, bridge welder and ex-smoker Cancer Mother Multiple myeloma Blood Disease Mother Diabetes Paternal Grandmother Emphysema Paternal Grandfather Colon Cancer Maternal Grandfather Cancer Maternal Grandfather Lung Cancer Maternal Grandmother Skin Stroke Maternal Grandmother Allergies Brother Allergies Son Alcohol/Drug Brother Social History Tobacco Use Smoking status: Former Types: Cigarettes Smokeless tobacco: Never Tobacco comments: quit 30 yrs ago Substance Use Topics Alcohol use: Yes Comment: rare glass of wine Drug use: No Objective Physical Exam Vitals and nursing note reviewed. Constitutional: Appearance: Normal appearance. HENT: Head: Normocephalic and atraumatic. Right Ear: Tympanic membrane and ear canal normal. Left Ear: Tympanic membrane and ear canal normal. Nose: No congestion or rhinorrhea. Right Turbinates: Swollen. Left Turbinates: Swollen. Mouth/Throat: Pharynx: No oropharyngeal exudate or posterior oropharyngeal erythema. Eyes (more content not included)... [facility] 08-29-2022 Instructions Charlotte Angeles - 08/29/2022 1:44 PM EDT ASSESSMENT/PLAN: 1. Acute cough - ICD9: 786.2, ICD10: R05.1 (primary diagnosis) - XR CHEST 2V FRONTAL/LAT IMPRESSION: No acute radiographic abnormality. 2. Sinobronchitis - ICD9: 473.9, 490, ICD10: J32.9, J40 - Supportive care with plenty of fluids, rest, and analgesia prn. - Follow up in 3-5 days if symptoms persist or worsen. - CODEINE 10 MG-GUAIFENESIN 100 MG/5 ML ORAL LIQUID 3. SOB (shortness of breath) - ICD9: 786.05, ICD10: R06.02 - ALBUTEROL SULFATE HFA 90 MCG/ACTUATION AEROSOL INHALER - INHALATIONAL SPACING DEVICE Charlotte Angeles APRN Student documented in this encounter [facility] 08-29-2022 History of Present illness Narrative Images from the original note were not included. Subjective Cough Associated symptoms include chills, headaches and shortness of breath. Pertinent negatives include no ear pain, no sore throat and no eye redness. Harlan Hope is a 67 year old female who presents with a cough and headache x 10 days. Pt states that she previously had a fever which has resolved this week. Pt states that she has back pain in her mid back. Pt also endorses SOB, worse with activity. Pt denies rhinorrhea, sore throat, nausea, vomiting or diarrhea. Pt has been taking cough medicine at home without relief. Pt has been using an albuterol inhaler for SOB. Pt states that t[employer] have not worked for her in the past and codeine- GUAIFENESIN normally works for her. Review of Systems Constitutional: Positive for chills. Negative for fever. HENT: Positive for congestion. Negative for ear pain and sore throat. Eyes: Negative for discharge and redness. Respiratory: Positive for cough, sputum production and shortness of breath. Gastrointestinal: Negative for abdominal pain, diarrhea, nausea and vomiting. Musculoskeletal: Positive for back pain. Neurological: Positive for headaches. BP 122/70 Pulse 94 Temp 36.7 C (98.1 F) Resp 16 Wt 88.5 kg (195 lb) SpO2 95% BMI 35.88 kg/m PAST MEDICAL HISTORY Diagnosis Date Atopic keratoconjunctivitis 10/15/2017 Benign hypertension 10/15/2017 Depression 07/02/2012 Diabetes (HCC) Hyperlipidemia LDL goal < 100 07/02/2014 Obesity 06/29/2015 Rheumatoid arthritis(714.0) Unspecified constipation PAST SURGICAL HISTORY Procedure Laterality Date CHOLECYSTECTOMY 1987 Cholecystectomy, pancreatitis COLSC FLX W/RMVL OF TUMOR POLYP LESION SNARE TQ 12/13/08 STRESS TEST NUCLEAR 07/06/12 Normal/negative ALLERGIES Augmentin [Amoxicillin-Pot Clavulanate], Environmental [Other], Erythromycin, Lisinopril, Meclizine, and Sulfa (Sulfonamide Antibiotics) MEDICATIONS JARDIANCE 10 mg tablet Take 10 mg by mouth once daily. irbesartan (AVAPRO) 75 mg tablet Take 1 tablet by mouth once daily. albuterol HFA (PROVENTIL HFA, VENTOLIN HFA) 90 mcg/actuation inhaler Inhale 2 Puffs as instructed every 4 hours as needed for wheezing/shortness of breath. fluticasone (FLONASE) 50 mcg/actuation nasal spray Use 2 Sprays in each nostril once daily. Rinse mouth after use. insulin lispro (HUMALOG KWIKPEN INSULIN) 100 unit/mL inpn inject 1 unit subcutaneously PER 15 GRAMS OF CARBS - USING 10 UNITS PER DAY (Patient taking differently: inject 1 unit subcutaneously PER 15 GRAMS OF CARBS - USING 10 UNITS PER DAY Per insulin pump) insulin lispro (HUMALOG KWIKPEN INSULIN) 100 unit/mL inpn Inject 1 unit/15 grams Carb, Using 10 units/day blood sugar diagnostic (LongaccessTOUCH ULTRA TEST) test strip Test blood sugar(s) 4 times daily. Dx: 250.01. Insulin: Yes insulin needles, DISPOSABLE, (PEN NEEDLE) 31 gauge x 5/16 ndle Use one needle per dose. 1 per day. tacrolimus (PROTOPIC) 0.1 % ointment Apply 1 application to affected area twice daily. olopatadine (PATANOL) 0.1 % ophthalmic solution Use 1 Drop in both eyes twice daily. clobetasol (TEMOVATE) 0.05 % ointment Apply to affected area nightly x 6-12 weeks, then use 1-2x weekly for maintenance Lancets (ONETOUCH ULTRASOFT LANCETS) lancets Test blood sugar(s)4 daily. Dx: diabetes. Insulin: Yes Cholecalciferol, Vitamin D3, 1,000 unit cap Take 1 capsule by mouth once daily. vitamin b complex (B COMPLETE) tab Take 1 tablet by mouth once daily. multivitamin tablet Take 1 tablet by mouth once daily. codeine-guaiFENesin (ROBITUSSIN AC) 10-100 mg/5 mL syrup Take 5-10 mL by mouth four times daily as needed for cough for up to 7 days. May cause drowsiness. FAMILY HISTORY Problem Relation Age of Onset COPD Father emphasema, bridge welder and ex-smoker Cancer Mother Multiple myeloma Blood Disease Mother Diabetes Paternal Grandmother Emphysema Paternal Grandfather Colon Cancer Maternal Grandfather Cancer Maternal Grandfather Lung Cancer Maternal Grandmother Skin Stroke Maternal Grandmother Allergies Brother Allergies Son Alcohol/Drug Brother Social History Tobacco Use Smoking status: Former Types: Cigarettes Smokeless tobacco: Never Tobacco comments: quit 30 yrs ago Substance Use Topics Alcohol use: Yes Comment: rare glass of wine Drug use: No Objective Physical Exam Vitals and nursing note reviewed. Constitutional: Appearance: Normal appearance. HENT: Head: Normocephalic and atraumatic. Right Ear: Tympanic membrane and ear canal normal. Left Ear: Tympanic membrane and ear canal normal. Nose: No congestion or rhinorrhea. Right Turbinates: Swollen. Left Turbinates: Swollen. Mouth/Throat: Pharynx: No oropharyngeal exudate or posterior oropharyngeal erythema. Eyes: Conjunctiva/sclera: Conjunctivae normal. Cardiovascular: Rate and Rhythm: Normal rate and regular rhythm. Pulmonary: Effort: Pulmonary effort is normal. Breath sounds: Normal breath sounds. Abdominal: Palpations: Abdomen is soft. Tenderness: There is no right CVA tenderness or left CVA tenderness. Musculoskeletal: Back: Lymphadenopathy: Cervical: No cervical adenopathy. Skin: General: Skin is warm and dry. Neurological: Mental Status: She is alert. ASSESSMENT/PLAN: 1. Acute cough - ICD9: 786.2, ICD10: R05.1 (primary diagnosis) - XR CHEST 2V FRONTAL/LAT IMPRESSION: No acute radiographic abnormality. 2. Sinobronchitis - ICD9: 473.9, 490, ICD10: J32.9, J40 - Supportive care with plenty of fluids, rest, and analgesia prn. - Follow up in 3-5 days if symptoms persist or worsen. - CODEINE 10 MG-GUAIFENESIN 100 MG/5 ML ORAL LIQUID 3. SOB (shortness of breath) - ICD9: 786.05, ICD10: R06.02 - ALBUTEROL SULFATE HFA 90 MCG/ACTUATION AEROSOL INHALER - INHALATIONAL SPACING DEVICE Charlotte Angeles APRN Student TEACHING PROVIDER (Physician/PA/WIRE SPOOLER) NOTE OF PERSONAL INVOLVEMENT IN CARE: I have personally seen and examined the patient and performed the medical decision-making components. I have reviewed the Advanced Practice Registered Nurse (WIRE SPOOLER) Student's documentation and verified the findings in the note as written. Any additions or changes are noted in bold/italics. Signature: Miranda Still Date: 08/29/2022 Time: 2:14 PM documented in this encounter [facility] 07-24-2022 Note HNO ID: [id number] Author: Kristen Shelley APRN.FINANCIAL PLANNER Service: ? Author Type: Nurse Practitioner Type: Progress Notes Filed: 07/24/2022 9:09 AM Note Text: This note was created using NoteWriter. Dania Hope is a 67 year old female. 67 year old female with PMH hyperlipidemia, HTN, obesity, and OA presents with complaints of UTI. Acute onset this AM +urgency +frequency Denies dysuria. +suprapubic pressure Denies flank pain. Denies N/V/D. Denies fever or chills. Denies vaginal discharge. Denies vaginal bleeding. Denies recent coitus. States that her sugars usually run 160 Presently 227 on her real time insulin pump Endorses she took an Azos this morning. Denies factors that seem to alleviate. Denies factors that seem to exacerbate. Denies UTI in the past 6 months. Work note requested. The history is provided by the patient. No speech language pathology assistant was used. UTI This is a new problem. The current episode started 3 to 5 hours ago. The problem occurs every urination. The problem has been gradually worsening. The pain is at a severity of 0/10. The patient is experiencing no pain. There has been no fever. She is Not sexually active. There is No history of pyelonephritis. Associated symptoms include frequency, hesitancy and urgency. Pertinent negatives include no chills, no sweats, no nausea, no vomiting, no discharge, no hematuria, no possible and no flank pain. Treatments tried: Azos. Her past medical history does not include kidney stones, single kidney, urological procedure, recurrent UTIs, urinary stasis or catheterization. PAST MEDICAL HISTORY Diagnosis Date - Atopic keratoconjunctivitis 10/15/2017 - Benign hypertension 10/15/2017 - Depression 07/02/2012 - Diabetes (HCC) - Hyperlipidemia LDL goal < 100 07/02/2014 - Obesity 06/29/2015 - Rheumatoid arthritis(714.0) - Unspecified constipation PAST SURGICAL HISTORY Procedure Laterality Date - CHOLECYSTECTOMY 1987 Cholecystectomy, pancreatitis - COLSC FLX W/RMVL OF TUMOR POLYP LESION SNARE TQ 12/13/08 - STRESS TEST NUCLEAR 07/06/12 Normal/negative ALLERGIES Augmentin [Amoxicillin-Pot Clavulanate], Environmental [Other], Erythromycin, Lisinopril, Meclizine, and Sulfa (Sulfonamide Antibiotics) MEDICATIONS - JARDIANCE 10 mg tablet Take 10 mg by mouth once daily. - irbesartan (AVAPRO) 75 mg tablet Take 1 tablet by mouth once daily. - albuterol HFA (PROVENTIL HFA, VENTOLIN HFA) 90 mcg/actuation inhaler Inhale 2 Puffs as instructed every 4 hours as needed for wheezing/shortness of breath. - fluticasone (FLONASE) 50 mcg/actuation nasal spray Use 2 Sprays in each nostril once daily. Rinse mouth after use. - insulin lispro (HUMALOG KWIKPEN INSULIN) 100 unit/mL inpn inject 1 unit subcutaneously PER 15 GRAMS OF CARBS - USING 10 UNITS PER DAY (Patient taking differently: inject 1 unit subcutaneously PER 15 GRAMS OF CARBS - USING 10 UNITS PER DAY Per insulin pump) - insulin lispro (HUMALOG KWIKPEN INSULIN) 100 unit/mL inpn Inject 1 unit/15 grams Carb, Using 10 units/day - blood sugar diagnostic (ONETOUCH ULTRA TEST) test strip Test blood sugar(s) 4 times daily. Dx: 250.01. Insulin: Yes - insulin needles, DISPOSABLE, (PEN NEEDLE) 31 gauge x 5/16 ndle Use one needle per dose. 1 per day. - tacrolimus (PROTOPIC) 0.1 % ointment Apply 1 application to affected area twice daily. - olopatadine (PATANOL) 0.1 % ophthalmic solution Use 1 Drop in both eyes twice daily. - clobetasol (TEMOVATE) 0.05 % ointment Apply to affected area nightly x 6-12 weeks, then use 1-2x weekly for maintenance - Lancets (ONETOUCH ULTRASOFT LANCETS) lancets Test blood sugar(s)4 daily. Dx: diabetes. Insulin: Yes - Cholecalciferol, Vitamin D3, 1,000 unit cap Take 1 capsule by mouth once daily. - vitamin b complex (B COMPLETE) tab Take 1 tablet by mouth once daily. - multivitamin tablet Take 1 tablet by mouth once daily. - cephALEXin (KEFLEX) 250 mg capsule Take 1 capsule by mouth twice daily for 7 days. FAMILY HISTORY Problem Relation Age of Onset - COPD Father emphasema, bridge welder and ex-smoker - Cancer Mother Multiple myeloma - Blood Disease Mother - Diabetes Paternal Grandmother - Emphysema Paternal Grandfather - Colon Cancer Maternal Grandfather - Cancer Maternal Grandfather Lung - Cancer Maternal Grandmother Skin - Stroke Maternal Grandmother - Allergies Brother - Allergies Son - Alcohol/Drug Brother Social History Tobacco Use - Smoking status: Former Types: Cigarettes - Smokeless tobacco: Never - Tobacco comments: quit 30 yrs ago Substance Use Topics - Alcohol use: Yes Comment: rare glass of wine - Drug use: No Review of Systems Constitutional: Negative for chills, fatigue and fever. HENT: Negative for congestion. Eyes: Negative for pain, discharge and itching. Respiratory: Negative for apnea, cough, choking and chest tightness. Cardiovascular: N (more content not included)... [facility] 07-24-2022 Instructions Kristen Shelley APRN.[facility] - 07/24/2022 8:50 AM EDT Images from the original note were not included. Urinary Problem-When to Seek Help? Symptoms of a urinary problem may lead to a bladder infection. Women are at greater risk of a urinary tract infection than are men. Most urinary tract infections in women are caused by bacteria and involve the lower urinary tract including the bladder and urethra. Symptoms: Pain or burning when passing urine, urgency, frequency, blood in the urine, difficult emptying your bladder, and lower abdominal fullness or pressure. Common Causes: Sexual intercourse, menopause, constipation, uncontrolled diabetes, dehydration and feminine products such as tampons, and kidney stones. When to Get Help: Seek medical attention if you get frequent bladder infections, urinary concerns such as leakage, blood in the urine or frequent need to urinate. You may be recommended to get help from a specialist, such as a urologist. Diagnosis & Treatment: Lab testing may include: urinalysis, and urine culture that can be collected in the lab or walk-in clinic. Most bladder infections can easily be treated. A physician, nurse practitioner or physician executive marketing assistant may treat with a short course of an antibiotic. Delaying treatment can lead to worsening symptoms, like a kidney infection. Self-Care: Avoid a full bladder, bubble baths, bath oils, food and beverages that may irritate the bladder such as caffeine. Avoid spermicide foam and diaphragms Void before and after sexual intercourse Wipe front to back after using the bathroom. Stay hydrated Stop Smoking Follow-up Care: Follow up testing is not needed in healthy young women if symptoms resolve. documented in this encounter [facility] 07-24-2022 History of Present illness Narrative This note was created using [employer]. Subjective Harlan Hope is a 67 year old female. 67 year old female with PMH hyperlipidemia, HTN, obesity, and OA presents with complaints of UTI. Acute onset this AM +urgency +frequency Denies dysuria. +suprapubic pressure Denies flank pain. Denies N/V/D. Denies fever or chills. Denies vaginal discharge. Denies vaginal bleeding. Denies recent coitus. States that her sugars usually run 160 Presently 227 on her real time insulin pump Endorses she took an Azos this morning. Denies factors that seem to alleviate. Denies factors that seem to exacerbate. Denies UTI in the past 6 months. Work note requested. The history is provided by the patient. No speech language pathology assistant was used. UTI This is a new problem. The current episode started 3 to 5 hours ago. The problem occurs every urination. The problem has been gradually worsening. The pain is at a severity of 0/10. The patient is experiencing no pain. There has been no fever. She is Not sexually active. There is No history of pyelonephritis. Associated symptoms include frequency, hesitancy and urgency. Pertinent negatives include no chills, no sweats, no nausea, no vomiting, no discharge, no hematuria, no possible and no flank pain. Treatments tried: Azos. Her past medical history does not include kidney stones, single kidney, urological procedure, recurrent UTIs, urinary stasis or catheterization. PAST MEDICAL HISTORY Diagnosis Date Atopic keratoconjunctivitis 10/15/2017 Benign hypertension 10/15/2017 Depression 07/02/2012 Diabetes (HCC) Hyperlipidemia LDL goal < 100 07/02/2014 Obesity 06/29/2015 Rheumatoid arthritis(714.0) Unspecified constipation PAST SURGICAL HISTORY Procedure Laterality Date CHOLECYSTECTOMY 1987 Cholecystectomy, pancreatitis COLSC FLX W/RMVL OF TUMOR POLYP LESION SNARE TQ 12/13/08 STRESS TEST NUCLEAR 07/06/12 Normal/negative ALLERGIES Augmentin [Amoxicillin-Pot Clavulanate], Environmental [Other], Erythromycin, Lisinopril, Meclizine, and Sulfa (Sulfonamide Antibiotics) MEDICATIONS JARDIANCE 10 mg tablet Take 10 mg by mouth once daily. irbesartan (AVAPRO) 75 mg tablet Take 1 tablet by mouth once daily. albuterol HFA (PROVENTIL HFA, VENTOLIN HFA) 90 mcg/actuation inhaler Inhale 2 Puffs as instructed every 4 hours as needed for wheezing/shortness of breath. fluticasone (FLONASE) 50 mcg/actuation nasal spray Use 2 Sprays in each nostril once daily. Rinse mouth after use. insulin lispro (HUMALOG KWIKPEN INSULIN) 100 unit/mL inpn inject 1 unit subcutaneously PER 15 GRAMS OF CARBS - USING 10 UNITS PER DAY (Patient taking differently: inject 1 unit subcutaneously PER 15 GRAMS OF CARBS - USING 10 UNITS PER DAY Per insulin pump) insulin lispro (HUMALOG KWIKPEN INSULIN) 100 unit/mL inpn Inject 1 unit/15 grams Carb, Using 10 units/day blood sugar diagnostic (ONETOUCH ULTRA TEST) test strip Test blood sugar(s) 4 times daily. Dx: 250.01. Insulin: Yes insulin needles, DISPOSABLE, (PEN NEEDLE) 31 gauge x 5/16 ndle Use one needle per dose. 1 per day. tacrolimus (PROTOPIC) 0.1 % ointment Apply 1 application to affected area twice daily. olopatadine (PATANOL) 0.1 % ophthalmic solution Use 1 Drop in both eyes twice daily. clobetasol (TEMOVATE) 0.05 % ointment Apply to affected area nightly x 6-12 weeks, then use 1-2x weekly for maintenance Lancets (ONETOUCH ULTRASOFT LANCETS) lancets Test blood sugar(s)4 daily. Dx: diabetes. Insulin: Yes Cholecalciferol, Vitamin D3, 1,000 unit cap Take 1 capsule by mouth once daily. vitamin b complex (B COMPLETE) tab Take 1 tablet by mouth once daily. multivitamin tablet Take 1 tablet by mouth once daily. cephALEXin (KEFLEX) 250 mg capsule Take 1 capsule by mouth twice daily for 7 days. FAMILY HISTORY Problem Relation Age of Onset COPD Father emphasema, bridge welder and ex-smoker Cancer Mother Multiple myeloma Blood Disease Mother Diabetes Paternal Grandmother Emphysema Paternal Grandfather Colon Cancer Maternal Grandfather Cancer Maternal Grandfather Lung Cancer Maternal Grandmother Skin Stroke Maternal Grandmother Allergies Brother Allergies Son Alcohol/Drug Brother Social History Tobacco Use Smoking status: Former Types: Cigarettes Smokeless tobacco: Never Tobacco comments: quit 30 yrs ago Substance Use Topics Alcohol use: Yes Comment: rare glass of wine Drug use: No Review of Systems Constitutional: Negative for chills, fatigue and fever. HENT: Negative for congestion. Eyes: Negative for pain, discharge and itching. Respiratory: Negative for apnea, cough, choking and chest tightness. Cardiovascular: Negative for chest pain, palpitations and leg swelling. Gastrointestinal: Negative for abdominal pain, diarrhea, nausea and vomiting. Genitourinary: Positive for dysuria, frequency, hesitancy and urgency. Negative for flank pain and hematuria. Musculoskeletal: Negative for arthralgias and back pain. Skin: Negative for color change, pallor, rash and wound. Allergic/Immunologic: Negative for environmental allergies, food allergies and immunocompromised state. Neurological: Negative for dizziness and facial asymmetry. Hematological: Negative for adenopathy. Does not bruise/bleed easily. Psychiatric/Behavioral: Negative for agitation and behavioral problems. Objective BP 124/70 Pulse 83 Temp 36.9 C (98.4 F) Resp 18 Wt 88.6 kg (195 lb 6.4 oz) SpO2 98% BMI 35.96 kg/m Physical Exam Vitals and nursing note reviewed. Constitutional: General: She is not in acute distress. Appearance: Normal appearance. She is normal weight. She is not ill-appearing, toxic-appearing or diaphoretic. HENT: Head: Normocephalic and atraumatic. Right Ear: Ear canal and external ear normal. Left Ear: Ear canal and external ear normal. Nose: Nose normal. No congestion or rhinorrhea. Mouth/Throat: Mouth: Mucous membranes are moist. Pharynx: No oropharyngeal exudate or posterior oropharyngeal erythema. Eyes: General: Right eye: No discharge. Left eye: No discharge. Extraocular Movements: Extraocular movements intact. Conjunctiva/sclera: Conjunctivae normal. Pupils: Pupils are equal, round, and reactive to light. Cardiovascular: Rate and Rhythm: Normal rate and regular rhythm. Pulses: Normal pulses. Heart sounds: Normal heart sounds. No murmur heard. No friction rub. Pulmonary: Effort: Pulmonary effort is normal. No respiratory distress. Breath sounds: Normal breath sounds. No stridor. No wheezing, rhonchi or rales. Chest: Chest wall: No tenderness. Abdominal: General: Abdomen is flat. There is no distension. Palpations: Abdomen is soft. There is no mass. Tenderness: There is no abdominal tenderness. There is no right CVA tenderness, left CVA tenderness, guarding or rebound. Hernia: No hernia is present. Musculoskeletal: General: No swelling, tenderness, deformity or signs of injury. Normal range of motion. Cervical back: Normal range of motion and neck supple. No rigidity. Right lower leg: No edema. Left lower leg: No edema. Lymphadenopathy: Cervical: No cervical adenopathy. Skin: General: Skin is warm and dry. Capillary Refill: Capillary refill takes less than 2 seconds. Coloration: Skin is not jaundiced or pale. Findings: No bruising, erythema, lesion or rash. Neurological: General: No focal deficit present. Mental Status: She is alert and oriented to person, place, and time. Cranial Nerves: No cranial nerve deficit. Sensory: No sensory deficit. Motor: No weakness. Coordination: Coordination normal. Gait: Gait normal. Psychiatric: Mood and Affect: Mood normal. Behavior: Behavior normal. Thought Content: Thought content normal. Judgment: Judgment normal. Assessment and Plan ASSESSMENT/PLAN: 1. Urinary frequency - ICD9: 788.41, ICD10: R35.0 acute - UA positive for tony esterase, hematuria, proteinuria, and glucose (greater than 499097) Patient endorsees she utilized Azos Her real time monitor attached to her insulin pump reveals current blood sugar 227. - Send urine for culture Discussed that high sugars and/or yeast infection can cause her symptoms. She self swabs, And requests to be treated for UTI at this time. Discussed if culture is negative she would be advised to stop. - Begin treatment with Keflex 500 mg PO twice a day for 7 days - Patient education for prevention given Follow up with PCP Work note provided. - UA DIP, URINE (POC) - URINE CULTURE - AMILCAR / TRICHOMONAS AMPLIFICATION - CEPHALEXIN 250 MG CAPSULE Kristen Shelley APRN.[facility] documented in this encounter [facility] 05-16-2022 Note Patient Outreach (IN [facility]) HARLAN HOPE ([id number]) 1955 F Date Time Provider Department 05/16/22 ERROL LUNA During your visit today, we recorded the following information about you: Allergies As of Date: 05/16/2022 Noted Allergy Reaction AUGMENTIN (AMOXICILLIN-POT CLAVUL*12/15/2016 8 - GI Upset ENVIRONMENTAL [Other] 09/25/2005 ERYTHROMYCIN 09/25/2005 LISINOPRIL 06/29/2015 3 - Cough SULFA (SULFONAMIDE ANTIBIOTICS) 09/07/2005 4 - Hives Date Reviewed: 12/27/2021 Reviewed by: Al Engel APRN.FINANCIAL [employer]NER - Fully Assessed Visit Diagnosis:Encounter for screening mammogram for breast cancer [Z12.31] Order(s):[facility] SCREENING [[id number]] Order #: [id number] FUTURE Prescriptions as of 05/21/2022 - JARDIANCE 10 mg tablet Take 10 mg by mouth once daily. - irbesartan (AVAPRO) 75 mg tablet Take 1 tablet by mouth once daily. - albuterol HFA (PROVENTIL HFA, VENTOLIN HFA) 90 mcg/actuation inhaler Inhale 2 Puffs as instructed every 4 hours as needed for wheezing/shortness of breath. - fluticasone (FLONASE) 50 mcg/actuation nasal spray Use 2 Sprays in each nostril once daily. Rinse mouth after use. - insulin lispro (HUMALOG KWIKPEN INSULIN) 100 unit/mL inpn inject 1 unit subcutaneously PER 15 GRAMS OF CARBS - USING 10 UNITS PER DAY - insulin lispro (HUMALOG KWIKPEN INSULIN) 100 unit/mL inpn Inject 1 unit/15 grams Carb, Using 10 units/day - blood sugar diagnostic (ONETOUCH ULTRA TEST) test strip Test blood sugar(s) 4 times daily. Dx: 250.01. Insulin: Yes - insulin needles, DISPOSABLE, (PEN NEEDLE) 31 gauge x 5/16 ndle Use one needle per dose. 1 per day. - tacrolimus (PROTOPIC) 0.1 % ointment Apply 1 application to affected area twice daily. - olopatadine (PATANOL) 0.1 % ophthalmic solution Use 1 Drop in both eyes twice daily. - clobetasol (TEMOVATE) 0.05 % ointment Apply to affected area nightly x 6-12 weeks, then use 1-2x weekly for maintenance - Lancets (LongaccessTOUCH ULTRASOFT LANCETS) lancets Test blood sugar(s)4 daily. Dx: diabetes. Insulin: Yes - Cholecalciferol, Vitamin D3, 1,000 unit cap Take 1 capsule by mouth once daily. - vitamin b complex (B COMPLETE) tab Take 1 tablet by mouth once daily. - multivitamin tablet Take 1 tablet by mouth once daily. 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] 09/17/2012 Migraine [G43.909] 09/17/2012 11/16/2021 Hyperlipidemia with target LDL less than 100 [E*07/02/2014 Osteoarthritis of finger of right hand [M19.041]06/29/2015 Fatty liver disease, nonalcoholic [K76.0] 06/29/2015 Obesity [E66.9] 06/29/2015 Lichen sclerosus et atrophicus [L90.0] 07/05/2016 Benign hypertension [I10] 10/15/2017 Atopic keratoconjunctivitis [H16.299] 10/15/2017 Encounter Status:Closed by Langtice, PRODUSER on 05/21/22 [facility] documented as of this encounter (statuses as of 05/21/2022) [facility]11[facility] History of Past illness Narrative* Problem Noted Date Resolved Date Migraine 09/17/2012 11/16/2021 Abdominal pain, LLQ (left lower quadrant) 200906/29/2015 documented as of this encounter (statuses as of 07/24/2022) [facility] History of Past illness Narrative* Problem Noted Date Resolved Date Migraine 09/17/2012 11/16/2021 Abdominal pain, LLQ (left lower quadrant) 200906/29/2015 documented as of this encounter (statuses as of 08/29/2022) [facility] History of Past illness Narrative* Problem Noted Date Resolved Date Migraine 09/17/2012 11/16/2021 Abdominal pain, LLQ (left lower quadrant) 200906/29/2015 documented as of this encounter (statuses as of 09/12/2022) [facility] History of Past illness Narrative* Problem Noted Date Resolved Date Migraine 09/17/2012 11/16/2021 Abdominal pain, LLQ (left lower quadrant) 200906/29/2015 documented as of this encounter (statuses as of 09/12/2022) [facility] History of Past illness Narrative* Problem Noted Date Resolved Date Migraine 09/17/2012 11/16/2021 Abdominal pain, LLQ (left lower quadrant) 200906/29/2015 documented as of this encounter (statuses as of 04/29/2023) [facility] Appointment Date:10/19/2021 02:30:00 PM Scheduled Provider:KEYANNA SHARIF MD [place] Appointment Type:[facility] Evaluation + Plan note Future Appointments Appointment Date:02/22/2022 03:00:00 PM Scheduled Provider:KEYANNA SHARIF MD Location[place] Appointment Type:[facility] Evaluation + Plan note Future Appointments Appointment Date:06/14/2022 09:45:00 AM Scheduled Provider:KEYANNA SHARIF MD Location[place] Appointment Type:[facility] Evaluation + Plan note Future Appointments Appointment Date:10/18/2022 03:00:00 PM Scheduled Provider:KEYANNA SHARIF MD Location[place] Appointment Type:[facility] Evaluation + Plan note Future Appointments Appointment Date:03/07/2023 03:15:00 PM Scheduled Provider:KEYANNA SHARIF MD Location[place] Appointment Type:[facility] Evaluation + Plan note Future Appointments Appointment Date:10/10/2023 02:45:00 PM Scheduled Provider:KEYANNA SHARIF MD Location[place] Appointment Type:[facility] Future Scheduled Tests Laboratory* A1C Hemoglobin 06/07/23 * Lipid Profile 06/07/23 * Albumin/Creatinine Ratio, Random Urine 06/07/23 * Vitamin D Level 06/07/23 * Complete Metabolic Panel 06/07/23 [facility] Evaluation note* Diagnosis Encounter for screening mammogram for breast cancer documented in this encounter [facility] note* Diagnosis Urinary frequency- Primary documented in this encounter [facility] note* Diagnosis Acute cough- Primary Sinobronchitis Unspecified sinusitis (chronic) SOB (shortness of breath) Shortness of breath documented in this encounter [facility] note* Diagnosis Bronchitis- Primary Bronchitis, not specified as acute or chronic documented in this encounter [facility] note* Diagnosis Encounter for screening mammogram for breast cancer documented in this encounter [facility] course Narrative No data available for this section [facility] Hospital Discharge instructions No data available for this section [facility] Progress note No data available for this section [facility] Reason for referral (narrative)* Diagnostic Procedure Only (Routine) - Pending Review Specialty Diagnoses / Procedures Referred By Guillermo moore Referred To Contact [facility] Diagnoses Encounter for screening mammogram for breast cancer Procedures RAISA SCREENING SCREENING MAMMOGRAPHY BI 2-VIEW BREAST INC Errol Andrews MD [address] [place] [address] [facility] [address] [place] [id number] Referral ID Status Reason Start Date Expiration Date Visits Requested Visits Authorized [id number] Pending Review Auto-Generat ed Referral 05/16/2022 06/15/2023 1 [facility] Diagnostic Procedure Only (Routine) - Pending Review Specialty Diagnoses / Procedures Referred By Guillermo moore Referred To Contact [facility] Diagnoses Encounter for screening mammogram for breast cancer Procedures RAISA SCREENING SCREENING MAMMOGRAPHY BI 2-VIEW BREAST INC Errol Andrews MD [address] [place] [address] [facility] [address] [place] [address] Referral ID Status Reason Start Date Expiration Date Visits Requested Visits Authorized [id number] Pending Review Auto-Generat ed Referral 04/24/2023 05/23/2024 1 1 [facility] Summary Purpose Family History No Family History Records Found No data available for this section No Family History Records Found Advance Directives No Advanced Directives Records FoundNo Advanced Directives Records Found Additional Source Comments Care Team (unrecognized sect ion and content) Snake Charmer Relationship Specialty Start Date End Date Errol Luna MD [address] [place], [place] [phone] PCP - General Family Medicine 09/07/21 Keyanna Sharif MD Picking Table Worker Endocrinology 09/02/20 Snake Charmer Relationship Specialty Start Date End Date Errol Luna MD [address] [place], [place] [phone] PCP - General Family Medicine 09/07/21 Keyanna Sharif MD Picking Table Worker Endocrinology 09/02/20 Snake Charmer Relationship Specialty Start Date End Date Errol Luna MD [address] [place], [place] [phone] PCP - General Family Medicine 09/07/21 Keyanna Sharif MD Picking Table Worker Endocrinology 09/02/20 Snake Charmer Relationship Specialty Start Date End Date Errol Luna MD [address] [place], [place] [phone] PCP - General Family Medicine 09/07/21 Keyanna Sharif MD Picking Table Worker Endocrinology 09/02/20 Snake Charmer Relationship Specialty Start Date End Date Errol Luna MD [address] [place] [address] PCP - General Family Medicine 09/07/21 Keyanna Sharif MD Picking Table Worker Endocrinology 09/02/20 Source Comments (unrecognize d section and content) In the event this informatio n is protected by the Federal Confidentiality of Alcohol and Drug Abuse Patient Records regulations: The Federal rules restrict any use of the information to criminally investigate or prosecute any alcohol or drug abuse patient.[facility] the event this information is protected by the Federal Confidentiality of Alcohol and Drug Abuse Patient Records regulations: The Federal rules restrict any use of the information to criminally investigate or prosecute any alcohol or drug abuse patient.[facility] HospitalIn the event this information is protected by the Federal Confidentiality of Alcohol and Drug Abuse Patient Records regulations: The Federal rules restrict any use of the information to criminally investigate or prosecute any alcohol or drug abuse patient.[facility] the event this information is protected by the Federal Confidentiality of Alcohol and Drug Abuse Patient Records regulations: The Federal rules restrict any use of the information to criminally investigate or prosecute any alcohol or drug abuse patient.[facility] the event this information is protected by the Federal Confidentiality of Alcohol and Drug Abuse Patient Records regulations: The Federal rules restrict any use of the information to criminally investigate or prosecute any alcohol or drug abuse patient.[facility] the event this information is protected by the Federal Confidentiality of Alcohol and Drug Abuse Patient Records regulations: The Federal rules restrict any use of the information to criminally investigate or prosecute any alcohol or drug abuse patient.[facility] Care Team (unrecognized sect ion and content) Care Team Personnel Name: ERROL LUNA MD Member Role: Primary Care Physician Address: Address: [facility] [address] [place] [address]- Care Team Related Persons Name: JACK HOPE Address: [address] [phone] [place] Care Team Personnel Name: ERROL LUNA MD Member Role: Primary Care Physician Address: Address: [facility] [address] [place] [phone]- Care Team Related Persons Name: JACK HOPE Address: Home [address] [place] [phone] Reason for Visit (unrecogniz ed section and content) Specialty Diagnoses / Procedures Referred By Contac t Referred To Contact Internal Medicine / [facility] Diagnoses UTI (urinary tract infection) possible uti frequency Procedures OFFICE/OUTPATIENT ESTABLISHED MOD MDM 30-39 MIN EST SAME DAY Maritza Concepcion PA-C [address] [place] [address] [facility] [address] [address] [place] [address] Referral ID Status Reason Start Date Expiration Date Visits Re quested Visits Authorized [id number] Closed 07/24/2022 11/03/2022 1 1 Reason Comments Cough fever, headache and back pain x 10 days Specialty Diagnoses / Procedures Referred By Contac t Referred To Contact Emergency Medicine / [facility] Diagnoses Acute cough cough, fever, mid back pain, headache Procedures OFFICE/OUTPATIENT ESTABLISHED MOD MDM 30-39 MIN EST SAME DAY Self Miranda 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 [employer] [address] [place] [phone] Referral ID Status Reason Start Date Expiration Date Visits Re quested Visits Authorized [id number] Closed 08/29/2022 11/03/2022 1 1 Reason Comments Cough congestion x 3-4 wee mn Specialty Diagnoses / Procedures Referred By Contac t Referred To Contact Family Medicine / [facility] Diagnoses Follow-up examination cough, congestion Procedures OFFICE/OUTPATIENT ESTABLISHED MOD MDM 30-39 MIN EST SAME DAY Self Juan Carlos Oconnor MD [address] [place] [address] Referral ID Status Reason Start Date Expiration Date Visits Re quested Visits Authorized [id number] Closed 09/12/2022 11/03/2022 1 1 Reason Onset Date Comments Refill Request 09/12/2022 INFORMATION SOURCE (unrecogn ized section and content) DATE CREATED AUTHOR AUTHOR'S ORGANIZ ATION 10/08/2023 [facility] ([place]) FOR RECORDS PERTAINING TO PATIENTS WHO ARE OR HAVE BEEN ENROLLED IN A CHEMICAL DEPENDENCY/SUBSTANCEABUSE PROGRAM, SOME INFORMATION MAY BE OMITTED. This clinical summary was aggregated from multiple sources. Caution should be exercised in using it in the provision of clinical care. This summary normalizes information from multiple sources, and as a consequence, information in this document may materially change the coding, format and clinical context of patient data. In addition, data may be omitted in some cases. CLINICAL DECISIONS SHOULD BE BASED ON THE PRIMARY CLINICAL RECORDS. [facility]. provides no warranty or guarantee of the accuracy or completeness of information in this document.
== END | disposition home or self-care (01) ==
LOC: OPBI 07:15
PROVIDERS: PCP Internal Medicine; Referring Provider Obstetrics & Gynecology; Visit Provider Obstetrics & Gynecology
DX: Z12.31 Encounter for screening mammogram for malignant neoplasm of breast (principal)
CPT/HCPCS: 77063; 77067

== ENCOUNTER 2025-01-12 06:49 | Day surgery (SDC) | payer MEDICARE, SELFPAY ==
[2025-01-12] VITALS (9 sets, daily range): BP systolic 81–101; BP diastolic 51–56; PULSE 79–89; RESP 14–16; TEMP 36.2–36.4; O2SAT 94–97; BMI 35.5
--- NOTE | 2025-01-12 07:23 | PCM.HP.STD ---
HPI - General General Date of Admission: 01/12/25 Date of Service: 01/12/25 Chief Complaint: colonoscopy HPI Narrative The patient is a 69-year-old female who is being seen today to set up a colonoscopy. Her last colonoscopy was about 10 years ago. It sounds as though she had a benign polyp at that point and was told her next colonoscopy to be performed in about 10 years. She did recently have an episode of blood per rectum. It sounds as though this may have been a small clot. Regardless she would probably be due for her next colonoscopy either way. She denies any other symptoms or problems actively. She has had diverticulitis in the past. [facility] Medical History Wears glasses Post-menopausal Arthritis Insulin dependent diabetes mellitus History of renal disease Fatty liver Back pain Migraine headache Dietary restriction History of diverticulitis Heartburn Non-smoker History of echocardiogram History of stress test Hypertension Bright red blood per rectum Tingling of skin Lichen sclerosus Obesity Hyperlipidemia Cerebral aneurysm Rheumatoid arthritis Diabetes Home Medications ?Medication ?Instructions ?Recorded ?Last Taken ?Type clobetasol 0.05 % topical ointment 1 applic topical QHS #30 grams 06/30/21 01/11/25 Rx empagliflozin 10 mg tablet 10 mg PO DAILY 06/30/21 01/08/25 History (Jardiance) irbesartan 75 mg tablet 75 mg PO DAILY 05/06/24 01/12/25 05:00 History albuterol sulfate 90 mcg/actuation 2 puff inhalation Q4-6H PRN 09/07/24 Unknown Rx aerosol inhaler shortness of breath or wheezing #8.5 grams semaglutide 0.25 mg or 0.5 mg (2 0.25 mg subcut CORONA 12/04/24 11/29/24 History mg/3 mL) subcutaneous pen injector (Ozempic) insulin lispro 100 unit/mL 1 unit continuous subcutaneous 12/18/24 01/12/25 History subcutaneous solution (Humalog infusion DAILY U-100 Insulin) Allergy/AdvReac Type Severity Reaction Status Date / Time azithromycin Allergy Other Verified 01/12/25 07:02 Sulfa (Sulfonamide Allergy Hives Verified 01/12/25 07:02 Antibiotics) Family History Grandmother Diabetes CVA (cerebral vascular accident) Grandfather Colon cancer Cancer Father Skin cancer COPD (chronic obstructive pulmonary disease) Mother Multiple myeloma CVA (cerebral vascular accident) Brother Alcoholism and drug addiction in family Surgical History History of blepharoplasty S/P colonoscopy Hx laparoscopic cholecystectomy Social History Smoking Status: Never smoker alcohol intake: never substance use type: does not use caffeine: Yes what type of physical activity do you participate in: none seatbelt use: always do you feel safe at home: Yes additional social history: - works at [employer] Vital Signs Vital Signs Vital Signs: 01/12/25 07:08 01/12/25 07:11 Temperature 97.1 F L Temperature Source Temporal Pulse Rate 84 Respiratory Rate 16 Respiratory Pattern Normal Blood Pressure 101/56 L Blood Pressure Mean 71 Blood Pressure Source Monitor Blood Pressure Position Semi-Fowlers Blood Pressure Location Left Arm Pulse Ox 95 Oxygen Delivery Method Room Air Weight Weight: 188 lb Body Mass Index (BMI) 35.5 Physical Exam Const alert, oriented x3 and no apparent distress Assessment & Plan Assessment/Plan (1) Encounter for screening for malignant neoplasm of colon: PLAN: Plan colonoscopy today'
--- NOTE | 2025-01-12 07:36 | PRE.ANES_ITS ---
ASA Classification* ASA Classification ASA Classification: 2 Assessment & Plan Anesthesia* Anesthesia Assessment Anesthesia Assessment: Discussed sedation and/or anesthesia options, risks, benefits, and alternatives with patient/parents/legal guardian/POA. Questions invited. The patient/parents/legal guardian/POA seems to understand and agrees to proceed with anesthesia plan. Reviewed the physical assessment, medical history, allergy history and patient home medications list prior to surgery/procedure/anesthetic and documented any changes. Performed airway and anesthesia risk assessments. Anesthesia Type Anesthesia Type: General History Source History Obtained from:: Patient Anesthesia Focused Assessment* Temperature: 97.1 F Pulse Rate: 84 Blood Pressure: 101/56 Respiratory Rate: 16 Pulse Ox: 95 Airway Assessment Mouth opens: >3 cm Mallampati Score: II Teeth Condition: Intact Focused Labs Anesthesia Preop lab: CBC WBC 9.8 K/mm3 (4.4-11.0) 07/07/12 04:03 07/07/12 RBC 3.92 M/mm3 (4.2-5.4) L 07/07/12 04:03 07/07/12 Hgb 12.6 g.dL (12.0-15.0) 07/07/12 04:03 07/07/12 Hct 37.6 % (37-47) 07/07/12 04:03 07/07/12 Plt Count 242 K/mm3 (150-450) 07/07/12 04:03 07/07/12 CHEMISTRY Potassium 4.0 mmol/L (3.5-5.1) 07/07/12 04:03 07/07/12 Sodium 141 mmol/L (136-145) 07/07/12 04:03 07/07/12 BUN 19 mg/dL (7-18) H 07/07/12 04:03 07/07/12 Creatinine 0.9 mg/dL (0.6-1.0) 07/07/12 04:03 07/07/12 Glucose 140 mg/dL (70-110) H 07/07/12 04:03 07/07/12 POC Glucose 131 mg/dL (70-110) H 07/07/12 10:54 07/07/12 TSH 0.99 uIU/mL (0.358-3.74) 07/05/12 09:20 2 COAG Pre-Assessment Diagnosis/Proposed Procedure Planned Operative Procedure(s): CSCOPE Anesthesia History Anesthesia History - electrical helper: Anesthesia History - electrical helper Hx Hospitalization No 12/18/24 14:56 Any Problems With Anesthesia No 12/18/24 14:56 Cholinesterase deficiency No 12/18/24 14:56 You/Your Family Experience No 12/18/24 14:56 fever (hyperthermia) with Relationship Recent Exposure to Contagious No 01/12/25 07:08 Disease Does patient have nerve No 12/18/24 14:56 stimulator Patient instructed to have device shut off --Does patient have Pacemaker No 01/12/25 07:11 or ICD? When Was Last Pacemaker Check QUESTION #4 FULL TEXT: You/Your Family Experience fever (hyperthermia) with Anesthesia Any additional information?: No Last Oral Intake Last Oral intake: Last Oral Intake NPO since 22:00 01/12/25 07:11 Meds taken in AM with sips of Yes 01/12/25 07:11 water? Meds patient instructed to take am of surgery Any additional information?: No PONV PONV - electrical helper: PONV - electrical helper Female Yes 12/18/24 14:56 HX of Motion Sickness No 12/18/24 14:56 HX of N/V After Surgery No 12/18/24 14:56 Non-Smoker Yes 12/18/24 14:56 Duration of Surgery greater No 12/18/24 14:56 than 60 minutes Number of Risk Factors 2 12/18/24 14:56 PONV Score Moderate Risk 12/18/24 14:56 Any additional information?: No Height & Weight Height & Weight: Anesthesia: Height & Weight Height 5 ft 1 in 01/12/25 07:11 Weight: 85.275 kg 01/12/25 07:11 Body Mass Index (BMI) 35.5 01/12/25 07:11 Respiratory Assessment Respiratory Assessment - electrical helper: Respiratory Tract Infection Hx - electrical helper Hx Respiratory Tract Infection No 12/18/24 14:56 Any additional information?: No STOP Sleep Apnea STOP Sleep Apnea - electrical helper: STOP Sleep Apnea - electrical helper Hx Hypertension Yes: CONTROLLED WITH MED 12/18/24 14:56 Hx Sleep Apnea No 12/18/24 14:56 CPAP BIPAP Do you snore loudly (louder No 12/18/24 14:56 than talking or can be heard Do you often feel tired/ No 12/18/24 14:56 fatigued/ sleepy during daytime? Has anyone observed you stop No 12/18/24 14:56 breathing during sleep? STOP Results Negative 12/18/24 14:56 QUESTION #5 FULL TEXT : Do you snore loudly (louder than talking or can be heard through closed doors)? Any additional information?: No Tobacco Use History Tobacco Use History - electrical helper: Tobacco Use History - electrical helper Tobacco Use Smoking Status Never smoker 12/18/24 14:56 Hx Tobacco Use No 12/18/24 14:56 Years Smoking Packs Smoked per Day Smoking Cessation Date was within the last 15 years Hx Smoking Cessation Date Hx Smoking Cessation Counseling Any additional information?: No Hematologic Medial History Hematologic Hx - electrical helper: Hematologic Medical Hx - ceramic engineer Hx of Blood Transfusion No 12/18/24 14:56 Hx of Transfusion in last 3 No 12/18/24 14:56 Months Date of Last Transfusion (if within last 3 months) Ever experience any problems No 12/18/24 14:56 with transfusion(s)? Specify any problems Hx of Preganancy in last 3 No 12/18/24 14:56 Months Nurse Filling Out Transfusion DSCHRIBER 12/18/24 14:56 & Questions: Date: 12/18/24 12/18/24 14:56 Time: 14:57 12/18/24 14:56 Patient unable to answer at this time (ie. confused, unrespo Any additional information?: No /Reproduction History /Reproductive History - electrical helper: /Reproductive Hx- electrical helper Hx Now No 12/18/24 14:56 Gestational Age (in weeks): EDC: Hx Hx Para Hx Section SAB No 12/18/24 14:56 Any additional information?: No PFSH Medical History Wears glasses Post-menopausal Arthritis Insulin dependent diabetes mellitus History of renal disease Fatty liver Back pain Migraine headache Dietary restriction History of diverticulitis Heartburn Non-smoker History of echocardiogram History of stress test Hypertension Bright red blood per rectum Tingling of skin Lichen sclerosus Obesity Hyperlipidemia Cerebral aneurysm Rheumatoid arthritis Diabetes Home Medications ?Medication ?Instructions ?Recorded ?Last Taken ?Type clobetasol 0.05 % topical ointment 1 applic topical QH S #30 grams 06/30/2101/02 Rx empagliflozin 10 mg tablet 10 mg PO DAILY 06/30/2105/28 History (Jardiance) irbesartan 75 mg tablet 75 mg PO DAILY 05/06/2401/02 05:00 History albuterol sulfate 90 mcg/actuation 2 puff inhalation Q 4-6H PRN 09/07/24 Unknown Rx aerosol inhaler shortness of breath or wheez ing #8.5 grams semaglutide 0.25 mg or 0.5 mg (2 0.25 mg subcut CORONA 11/29/24 History mg/3 mL) subcutaneous pen injector (Ozempic) insulin lispro 100 unit/mL 1 unit continuous subcutane ous 12/18/24 01/12/25 History subcutaneous solution (Humalog infusion DAILY U-100 Insulin) Allergy/AdvReac Type Severity Reaction Status Date / Time azithromycin Allergy Other Verified 01/12/25 07:02 Sulfa (Sulfonamide Allergy Hives Verified 01/12/25 07:02 Antibiotics) Family History Grandmother Diabetes CVA (cerebral vascular accident) Grandfather Colon cancer Cancer Father Skin cancer COPD (chronic obstructive pulmonary disease) Mother Multiple myeloma CVA (cerebral vascular accident) Brother Alcoholism and drug addiction in family Surgical History History of blepharoplasty S/P colonoscopy Hx laparoscopic cholecystectomy Social History Smoking Status: Never smoker alcohol intake: never substance use type: does not use caffeine: Yes what type of physical activity do you participate in: none seatbelt use: always do you feel safe at home: Yes additional social history: - works at [employer] Prior Cardiac Testing/Procedures Prior Cardiac Testing/Procedures: Stress Test (had long time ago - no issues) Review of Systems (Anesthesia) ROS Narrative System reviewed and no additional complaints, except as documented. Physical Exam Const alert and oriented x3 Resp normal respiratory effort, normal air movement and clear to auscultation bilaterally Cardio regular rate, regular rhythm, no murmurs and diaphoretic
[2025-01-12 07:42] LABS: Bedside Glucose 157 mg/dL (74-106)
--- NOTE | 2025-01-12 08:17 | OP.CCLET_ITS ---
01/12/2025 Sabina Vasquez [facility] [address] [place] [address] Re : Colonoscopy procedure for Harlan Hope Dear Dr. Vasquez This procedure was performed on Sunday, January 12, 2025. My impressions and recommendations are as follows: Impressions : - Preparation of the colon was unsatisfactory. - Diverticulosis in the sigmoid colon. - Internal hemorrhoids. - The examination was otherwise normal on direct and retroflexion views. - No specimens collected. Recommendations : - Discharge patient to home (ambulatory). - High fiber diet. - Repeat colonoscopy in 5 years for surveillance. - Return to my office PRN. - Continue present medications. My findings are described in the full procedure note, which is enclosed. If I can be of further assistance, please feel free to contact me at . Sincerely, Darren Estevez MD 01/12/2025 8:17:04 AM This report has been signed electronically.
--- NOTE | 2025-01-12 08:17 | OP.COLON_ITS ---
Patient Name: Harlan Hope Procedure Date: 01/12/2025 7:33 AM Date of : 1955 Age: 69 Procedure: Colonoscopy Indications: High risk colon cancer surveillance: Personal history of colonic polyps Providers: Darren Estevez MD Referring MD: Sabina Vasquez Medicines: Monitored Anesthesia Care Patient Profile: Refer to note in patient chart for documentation of history and physical. Last Colonoscopy: 10 years ago. Complications: No immediate complications. Estimated blood loss: None. Procedure: Pre-Anesthesia Assessment: - Prior to the procedure, a History and Physical was performed, and patient medications and allergies were reviewed. The patient's tolerance of previous anesthesia was also reviewed. The risks and benefits of the procedure and the sedation options and risks were discussed with the patient. All questions were answered, and informed consent was obtained. Prior Anticoagulants: The patient has taken no anticoagulant or antiplatelet agents. ASA Grade Assessment: II - A patient with mild systemic disease. After reviewing the risks and benefits, the patient was deemed in satisfactory condition to undergo the procedure. After I obtained informed consent, the scope was passed under direct vision. Throughout the procedure, the patient's blood pressure, pulse, and oxygen saturations were monitored continuously. The adult colonoscope was introduced through the anus and advanced to the cecum, identified by the appendiceal orifice, ileocecal valve and palpation. The ileocecal valve, appendiceal orifice, and rectum were photographed. The entire colon was examined. The colonoscopy was performed without difficulty. The patient tolerated the procedure well. The quality of the bowel preparation was unsatisfactory. Moderate Sedation: See the other procedure note for documentation of moderate sedation with intraservice time. Scope In: 7:50:19 AM Scope Withdrawal Time 0 hours 14 minutes 11 seconds Scope Out: 8:11:12 AM Total Procedure Duration Time 0 hours 20 minutes 53 seconds Findings: The perianal and digital rectal examinations were normal. Multiple small-mouthed diverticula were found in the sigmoid colon. Internal hemorrhoids were found during endoscopy. The hemorrhoids were moderate. The exam was otherwise without abnormality on direct and retroflexion views. Impression: - Preparation of the colon was unsatisfactory. - Diverticulosis in the sigmoid colon. - Internal hemorrhoids. - The examination was otherwise normal on direct and retroflexion views. - No specimens collected. Recommendation: - Discharge patient to home (ambulatory). - High fiber diet. - Repeat colonoscopy in 5 years for surveillance. - Return to my office PRN. - Continue present medications. Procedure Code(s): --- Professional --- 61521, Colonoscopy, flexible; diagnostic, including collection of specimen(s) by brushing or washing, when performed (separate procedure) Diagnosis Code(s): --- Professional --- Z86.010, Personal history of colonic polyps K57.30, Diverticulosis of large intestine without perforation or abscess without bleeding K64.8, Other hemorrhoids CPT copyright 2021 [employer]. All rights reserved. The codes documented in this report are preliminary and upon roll forger review may be revised to meet current compliance requirements. Darren Estevez MD 01/12/2025 8:17:04 AM This report has been signed electronically. Number of Addenda: 0 Note Initiated On: 01/12/2025 7:33 AM
--- NOTE | 2025-01-12 08:22 | PCM.POST.ANE ---
Anesthesia: Postop Eval I Current Vital Signs Temperature: 97.2 F Pulse Rate: 84 Blood Pressure: 81/52 Respiratory Rate: 16 Pulse Ox: 97 Oxygen Delivery Method: Room Air Assessment Airway patent: Yes Spontaneous unlabored respirations: Yes Mental status: Awake nausea: No Vomiting: No Anesthesia Complication: No Fluid Hydration Crystalloid volume administer (ml): 40 Total IV fluid infused: 40 Progress Note Anesthesia document: Postop Eval 1 completed: Yes
--- NOTE | 2025-01-12 09:41 | PCM.POSTANE2 ---
Anesthesia Postop Eval I Sum Postop Eval Completion status Anesthesia document: Postop Eval 1 completed: Yes Anesthesia Postop Eval I Summary Anesthesia Postop Eval I Summary: Anesthesia Postop Eval I: Assessment Summary Airway patent Yes 01/12/25 08:23 [email or web address] Spontaneous unlabored Yes 01/12/25 08:23 [email or web address] respirations Mental status Awake 01/12/25 08:23 [email or web address] nausea No 01/12/25 08:23 [email or web address] Vomiting No 01/12/25 08:23 [email or web address] Anesthesia Postop Eval I: Fluid Summary Crystalloid volume administer 40 01/12/25 08:23 [email or web address] (ml) Colloids volume administered ( ml) Blood Product volume administered (ml) Total IV fluid infused 40 01/12/25 08:23 [email or web address] Anesthesia Postop Eval I: Summary Notes Anesthesia Complication No 01/12/25 08:23 [email or web address] Anesthesia Complication Comment: Post-operative progress note Anesthesia: Postop Eval II Evaluation Mental status: Awake and Calm Pain Level: 0 nausea: No Vomiting: No Complications Anesthesia Complication: No
[2025-01-12 17:13] LABS: Bedside Glucose 137 mg/dL (74-106)
[2025-01-12 17:13] LABS: Bedside Glucose 139 mg/dL (74-106)
== END 2025-01-12 09:13 | disposition home or self-care (01) ==
LOC: EN 06:50 → AC 06:52
PROVIDERS: PCP Internal Medicine; Referring Provider Internal Medicine; Visit Provider Surgery
PROC: 0DJD8ZZ Inspection of Lower Intestinal Tract, Via Natural or Artificial Opening Endoscopic (ICD-10-PCS; CPT 45378; principal; 2025-01-12 07:25)
DX: Z12.11 Encounter for screening for malignant neoplasm of colon (principal); Z79.4 Long term (current) use of insulin; E11.9 Type 2 diabetes mellitus without complications; K57.30 Diverticulosis of large intestine without perforation or abscess without bleeding; I10 Essential (primary) hypertension; K64.8 Other hemorrhoids; E78.5 Hyperlipidemia, unspecified; Z80.0 Family history of malignant neoplasm of digestive organs; Z86.0100 Personal history of colon polyps, unspecified; Z79.84 Long term (current) use of oral hypoglycemic drugs; Z79.85 Long-term (current) use of injectable non-insulin antidiabetic drugs; Z79.51 Long term (current) use of inhaled steroids
CPT/HCPCS: G0105; 82962; A4216; J2405

== ENCOUNTER → 2025-05-04 | Outpatient (CLI) | payer MEDICARE, SELFPAY ==
--- NOTE | 2025-05-04 08:13 | BI_ITS ---
EXAM: SCRN MAMM (CAD)W/ALF BILAT DATE: 05/04/2025 CLINICAL HISTORY: F, Age 69 y/o , SCREENING TECHNIQUE: SCRN MAMM (CAD)W/ALF BILAT COMPARISON: Prior exam(s) dated 11/11/2023, 10/30/2022, 04/10/2021. FINDINGS: TISSUE DENSITY: The breasts are heterogeneously dense, which may obscure small masses. The mammogram demonstrates that the patient has dense breasts. Supplemental screening with whole breast ultrasound or MRI may be considered for further evaluation. Bilateral Breast Mammographic Findings: No significant masses, calcifications or other abnormalities are identified. BI/SCRN MAMM (CAD)W/ALF BILAT IMPRESSION: There is no mammographic evidence of malignancy. OVERALL FINAL ASSESSMENT BI-RADS 1: NEGATIVE. RECOMMEND ANNUAL MAMMOGRAPHIC SCREENING. RECOMMENDATION: Routine annual follow-up in 1 Year A letter with findings and recommendations will be mailed to the patient. Reading Location: [id number]
== END | disposition home or self-care (01) ==
LOC: OPBI 08:12
PROVIDERS: PCP Internal Medicine; Referring Provider Obstetrics & Gynecology; Visit Provider Obstetrics & Gynecology
DX: Z12.31 Encounter for screening mammogram for malignant neoplasm of breast (principal)
CPT/HCPCS: 77063; 77067

== ENCOUNTER → 2025-10-21 | Outpatient (CLI) | payer MEDICARE, SELFPAY ==
--- NOTE | 2025-10-21 15:22 | US_ITS ---
PROCEDURE: PELVIC W/ TRANSVAGINAL REASON FOR EXAM: PMB TECHNIQUE: Procedure Code: [id number] Modality: US Procedure: PELVIC W/ TRANSVAGINAL COMPARISON: None FINDINGS: Measurements: Uterus: 8.2 cm x 5.1 cm x 3.7 cm with a volume of 81.4 mL Endometrial Thickness: The endometrium is thickened and measures 10 mm. Right Ovary: 2.6 cm x 2.1 cm x 1.3 cm with a volume of 3.6 mL. Left Ovary: Not visualized. TRANSABDOMINAL: Uterus: 2.2 cm 2.5 cm 2.4 cm fundal fibroid. Endometrium: Endometrium is thickened measuring 10 mm. Right ovary: Normal size and echotexture. Left ovary: Not visualized. Other: No large pelvic mass identified. Transvaginal sonography was performed to better visualize the endometrium. TRANSVAGINAL: Uterus: Anteverted. 2.2 cm 2.5 cm 2.4 cm fundal fibroid. Endometrium: The endometrium is thickened measuring 10 mm. Right ovary: Normal size and echotexture. Left ovary: Not visualized. Other adnexal findings: None. Cul-de-sac: No free intraperitoneal fluid identified. Tenderness: No tenderness US/Pelvic w/ Transvaginal IMPRESSION: The endometrium is thickened measuring 10 mm. 2.2 cm 2.5 cm 2.4 cm fundal fibroid. Reading Location: [facility]
== END | disposition home or self-care (01) ==
LOC: US 15:21
PROVIDERS: PCP Internal Medicine; Referring Provider Student in an Organized Health Care Education/Training Program; Visit Provider Student in an Organized Health Care Education/Training Program
DX: N95.0 Postmenopausal bleeding (principal)
CPT/HCPCS: 76830; 76856